=== PATIENT | male | born 1955 | race Hispanic/Latino ===

== ENCOUNTER → 2024-02-09 | Outpatient (CLI) | payer MEDICARE ==
[~2024-02-09] MED LIST: IOHEXOL 350 MG/ML 100ML INFUS..BTL IV ONE
== END | disposition home or self-care (01) ==
LOC: RAH 09:38
PROVIDERS: ATTEND Student in an Organized Health Care Education/Training Program
DX: I25.10 Atherosclerotic heart disease of native coronary artery without angina pectoris (principal); R07.9 Chest pain, unspecified; J90 Pleural effusion, not elsewhere classified; M47.815 Spondylosis without myelopathy or radiculopathy, thoracolumbar region
CPT/HCPCS: 75574; Q9967

== ENCOUNTER 2024-03-07 09:07 | Inpatient (IN) | payer MEDICARE ==
[2024-03-03 13:25] LABS: BASOPHILS # (AUTO) 0.03 K/uL (0.00-0.20); BASOPHILS % (AUTO) 0.4 % (0.0-5.0); EOSINOPHILS # (AUTO) 0.12 K/uL (0.00-0.70); EOSINOPHILS % (AUTO) 1.5 % (0.0-8.0); HEMATOCRIT 43.7 % (42-54); IMMATURE GRANULOCYTE ABSOLUTE 0.04 K/uL (0-1); LYMPHOCYTES # (AUTO) 2.2 K/uL (1.0-4.8); LYMPHOCYTES % (AUTO) 26.8 % (21.0-51.0); MEAN CORPUSCULAR HEMOGLOBIN 30.1 pg (27.0-33.0); MEAN CORPUSCULAR HGB CONC 33.6 g/dL (32.0-36.0); MEAN CORPUSCULAR VOLUME 89.4 fL (79-99); MONOCYTES # (AUTO) 0.6 K/uL (0.1-1.0); MONOCYTES % (AUTO) 7.7 % (3.0-13.0); NEUTROPHILS # (AUTO) 5.2 K/uL (1.8-7.7); NEUTROPHILS % (AUTO) 63.1 % (40.0-77.0); PLATELET COUNT (AUTO) 193 K/uL (130-400); RED BLOOD CELL COUNT(AUTO) 4.89 MIL/uL (4.50-6.20); RED CELL DISTRIBUTION WIDTH 12.5 % (11.0-15.5); WHITE BLOOD COUNT (AUTO) 8.3 K/uL (4.8-10.8)
[2024-03-03 13:36] LABS: INR 0.94 (0.85-1.15); PROTHROMBIN TIME 11.1 SEC (9.6-11.6)
[2024-03-03 13:37] LABS: PARTIAL THROMBOPLASTIN TIME 25.6 SEC (26.3-35.5)
[2024-03-03 13:41] LABS: POTASSIUM 4.7 mmol/L (3.5-5.1)
[2024-03-03 13:56] LABS: B-TYPE NATRIURETIC PEPTIDE 912 pg/mL (0-100)
[2024-03-03 14:00] LABS: ADD UA MICROSCOPIC YES; APPEARANCE,URINE CLEAR (CLEAR); BILIRUBIN,URINE NEGATIVE (NEGATIVE); COLOR,URINE LIGHT-YELLOW (YELLOW); GLUCOSE, URINE (UA) >=1000 mg/dL (NEGATIVE); KETONES,URINE NEGATIVE (NEGATIVE); LEUKOCYTE ESTERASE ,URINE 250 Leu/uL (NEGATIVE); NITRATE,URINE NEGATIVE (NEGATIVE); OCCULT BLOOD,URINE NEGATIVE (NEGATIVE); PH,URINE 5.5 (5.0-8.0); PROTEIN,URINE 20 mg/dL (NEGATIVE); UROBILINOGEN,URINE 0.2 mg/dL (0.2-1.0)
[2024-03-03 14:03] LABS: BACTERIA,URINE RARE /HPF (None Seen); MUCUS,URINE RARE LPF (None Seen); OTHER CASTS, URINE 2 /LPF (None Seen); SQUAMOUS EPITHELIAL CELL,UR FEW /HPF (0-2)
[2024-03-03 14:46] VITALS: BP 142/73; PULSE 71; RESP 18
[2024-03-07] VITALS (11 sets, daily range): BP systolic 101–115; BP diastolic 57–67; PULSE 53–74; RESP 14–20; O2SAT 94–100
[~2024-03-07] VITALS: Ht 162.6 cm; Wt 71.2 kg
[~2024-03-07 09:07] MED LIST changes: -IOHEXOL 350 MG/ML 100ML INFUS..BTL IV ONE; +METF-445 PO
[2024-03-07] MEDS: 0.9%NACL 1000ML 1,000 ML IV ONE (11:21)
[2024-03-07] MEDS ORDERED: HEPARIN 10,000 UNIT/10ML (1,000 UNIT/ML) VIAL ONE (13:10)
[2024-03-07] MEDS ORDERED: NITROGLYCERIN 50MG VIAL ONE (13:10)
[2024-03-07] MEDS ORDERED: IOHEXOL 350 MG/ML 100ML INFUS..BTL IV ONE (13:10)
[2024-03-07] MEDS ORDERED: VERAPAMIL HCL 2.5 MG/ML VIAL ONE (13:10)
[2024-03-07] MEDS ORDERED: LIDOCAINE HCL 400MG/20ML VIAL ONE (13:11)
[2024-03-07] MEDS ORDERED: MIDAZOLAM HCL 1 MG/ML 2ML VIAL ONE (13:23)
[2024-03-07] MEDS ORDERED: FENTANYL CITRATE PF 50 MCG/1 ML 2ML VIAL ONE (13:23)
[2024-03-07] MEDS ORDERED: DEXTROSE 50%-WATER 50 ML DISP.SYRIN IV PRN (14:00)
[2024-03-07] MEDS ORDERED: GLUCAGON 1MG KIT 1 MG ML IM PRN (14:00)
[2024-03-07] MEDS: CEPHALEXIN 500 MG CAPSULE PO ONE (15:07)
[2024-03-07 16:47] LABS: ABG BASE EXCESS -0.9 mmol/L (-2.0-3.0); ABG HCO3 23.2 mmol/L (21.0-28.0); ABG OXYGEN SATURATION 96.7 % (95.0-99.0); ABG PCO2 37 mmHg (35-48); ABG PH 7.416 (7.35-7.450); PO2, ARTERIAL BG 85.7 mmHg (83.0-108.0); VENT MODE, BG RA (ROOM AIR)
[2024-03-07] MEDS ORDERED: ACETAMINOPHEN 325 MG TAB PO PRN (17:00)
[2024-03-07] MEDS ORDERED: DOCUSATE SODIUM 100 MG CAP PO PRN (17:00)
[2024-03-07] MEDS ORDERED: HYDRALAZINE 20MG/ML VIAL IV PRN (17:00)
[2024-03-07] MEDS ORDERED: ACETAMINOPHEN 650 MG SUPPOSITORY RC PRN (17:00)
[2024-03-07] MEDS ORDERED: CLONIDINE HCL 0.1 MG TABLET PO PRN (17:00)
[2024-03-07] MEDS ORDERED: ONDANSETRON 4MG INJ IVP PRN (17:00)
[2024-03-07] MEDS ORDERED: LACTULOSE 20 GM/30 ML UDCUP PO PRN (17:00)
[2024-03-07] MEDS: 0.9%NACL 1000ML 1,000 ML IV SCH ×2 (17:30→17:33)
[2024-03-07] MEDS: INSULIN HUMULIN R 100 UNIT/ML 3ML SQ SCH (22:03)
[2024-03-08] VITALS (11 sets, daily range): BP systolic 115–134; BP diastolic 58–74; PULSE 61–127; RESP 16–20; O2SAT 95–100
[2024-03-08 05:17] LABS: BASOPHILS # (AUTO) 0.03 K/uL (0.00-0.20); BASOPHILS % (AUTO) 0.4 % (0.0-5.0); EOSINOPHILS # (AUTO) 0.13 K/uL (0.00-0.70); EOSINOPHILS % (AUTO) 1.5 % (0.0-8.0); HEMATOCRIT 40.8 % (42-54); IMMATURE GRANULOCYTE ABSOLUTE 0.04 K/uL (0-1); LYMPHOCYTES % (AUTO) 23.2 % (21.0-51.0); MEAN CORPUSCULAR HEMOGLOBIN 30.2 pg (27.0-33.0); MEAN CORPUSCULAR HGB CONC 33.3 g/dL (32.0-36.0); MEAN CORPUSCULAR VOLUME 90.7 fL (79-99); MONOCYTES # (AUTO) 0.6 K/uL (0.1-1.0); MONOCYTES % (AUTO) 7.1 % (3.0-13.0); NEUTROPHILS # (AUTO) 5.8 K/uL (1.8-7.7); NEUTROPHILS % (AUTO) 67.3 % (40.0-77.0); PLATELET COUNT (AUTO) 173 K/uL (130-400); RED CELL DISTRIBUTION WIDTH 12.3 % (11.0-15.5); WHITE BLOOD COUNT (AUTO) 8.6 K/uL (4.8-10.8)
[2024-03-08 05:39] LABS: CREATININE 0.8 mg/dL (0.5-1.3); MAGNESIUM 1.7 mg/dL (1.80-2.40); PHOSPHORUS 3.5 mg/dL (2.5-4.9); POTASSIUM 3.8 mmol/L (3.5-5.1)
[2024-03-08] MEDS: MAGNESIUM 2GM PREMIX 50ML 50 ML IV PRN (07:11)
[2024-03-08] MEDS: ATORVASTATIN 40 MG TABLET PO SCH (21:11)
[2024-03-09] VITALS (45 sets, daily range): BP systolic 54–215; BP diastolic 13–121; PULSE 49–157; RESP 11–164; TEMP 97.6; O2SAT 96–100
[2024-03-09 04:41] LABS: HEMATOCRIT 41.2 % (42-54); MEAN CORPUSCULAR HEMOGLOBIN 29.7 pg (27.0-33.0); MEAN CORPUSCULAR HGB CONC 34.2 g/dL (32.0-36.0); MEAN CORPUSCULAR VOLUME 86.7 fL (79-99); RED BLOOD CELL COUNT(AUTO) 4.75 MIL/uL (4.50-6.20); RED CELL DISTRIBUTION WIDTH 12.2 % (11.0-15.5); WHITE BLOOD COUNT (AUTO) 7.9 K/uL (4.8-10.8)
[2024-03-09 04:50] LABS: CREATININE 0.9 mg/dL (0.5-1.3); POTASSIUM 4.4 mmol/L (3.5-5.1)
[2024-03-09 04:53] LABS: BILIRUBIN,TOTAL 0.6 mg/dL (0.2-1.0); TOTAL PROTEIN, SERUM 6.5 g/dL (6.0-8.3)
[2024-03-09 04:54] LABS: INR 0.95 (0.85-1.15); PROTHROMBIN TIME 11.3 SEC (9.6-11.6)
[2024-03-09 04:55] LABS: PARTIAL THROMBOPLASTIN TIME 26.1 SEC (26.3-35.5)
[2024-03-09 05:19] LABS: HEMOGLOBIN A1C 10.7 % (4.0-6.0)
[2024-03-09] MEDS: METOPROLOL SUCCINATE 25 MG TAB.SR.24H PO SCH (08:35)
[2024-03-09] MEDS: ENOXAPARIN SODIUM 30 MG/0.3 ML SQ SCH (08:35)
[2024-03-09] MEDS: ASPIRIN 81MG CHEW TAB PO SCH (08:35)
[2024-03-09] MEDS ORDERED: NOREPINEPHRIN 8MG/250ML NS 250 ML IV PRN (09:30)
[2024-03-09] MEDS ORDERED: EPINEPHRINE PF 1MG (1:1,000) 10 MG in 0.9% NACL 250ML 240 ML IV PRN ×2 (09:30→16:00)
[2024-03-09] MEDS ORDERED: AMINOCAPROIC ACID 5,000MG VIAL 15,000 MG in 0.9% NACL 500ML IV.SOLN 420 ML IV PRN (09:30)
[2024-03-09] MEDS ORDERED: CEFAZOLIN SODIUM 1 GM VIAL ONE (10:25)
[2024-03-09] MEDS ORDERED: PAPAVERINE HCL 30 MG/ML 2ML VIAL ONE (10:26)
[2024-03-09] MEDS ORDERED: NITROGLYCERIN 50MG/D5W 250ML 1 BOT ONE (13:53)
[2024-03-09] MEDS: 0.9%NACL 1000ML 1,000 ML IV ONE (13:54)
[2024-03-09] MEDS ORDERED: HEPARIN 10,000 UNIT/10ML (1,000 UNIT/ML) VIAL ONE ×3 (14:29→19:14)
[2024-03-09] MEDS ORDERED: EPINEPHRINE PF 1MG (1:1,000) 1 MG/ML AMP ONE (14:29)
[2024-03-09] MEDS ORDERED: NOREPINEPHRINE BITARTRATE 1 MG/1 ML ML IV ONE (14:29)
[2024-03-09] MEDS ORDERED: PROTAMINE SULFATE 10 MG/ML 25ML VIAL IV ONE (14:29)
[2024-03-09] MEDS ORDERED: LIDOCAINE PF 100MG/5ML (2%) SYRINGE 5ML ONE (14:29)
[2024-03-09] MEDS ORDERED: FENTANYL CITRATE PF 50 MCG/1 ML 20ML VIAL IJ ONE (14:29)
[2024-03-09] MEDS ORDERED: SODIUM BICARB 50MEQ 50ML VIAL 150 ML ONE ×2 (14:29→17:22)
[2024-03-09] MEDS ORDERED: PROPOFOL 10 MG/ML 20ML VIAL IV ONE (14:29)
[2024-03-09] MEDS ORDERED: MIDAZOLAM HCL 1 MG/ML 2ML VIAL ONE (14:30)
[2024-03-09] MEDS ORDERED: ROCURONIUM BROMIDE 10MG/1ML 5ML VL ONE ×2 (14:30→17:36)
[2024-03-09] MEDS ORDERED: KETAMINE 50MG/ML SYRINGE 50 MG/ML DISP.SYRIN ONE (14:32)
[2024-03-09] MEDS: CEFAZOLIN SODIUM 2 GM VIAL IVPB ONE (14:50)
[2024-03-09 15:31] LABS: ABG BASE EXCESS -4.8 mmol/L (-2.0-3.0); ABG HCO3 20.6 mmol/L (21.0-28.0); ABG OXYGEN SATURATION 99.5 % (95.0-99.0); ABG PCO2 39 mmHg (35-48); ABG PH 7.336 (7.35-7.450); CARBON MONOXIDE 0.2; DEVICE COMMENT 1; HHb 0.5; PO2, ARTERIAL BG 344.8 mmHg (83.0-108.0)
[2024-03-09] MEDS ORDERED: PROPOFOL 1000 MG/100 ML 100 ML IV PRN (16:00)
[2024-03-09] MEDS ORDERED: INSULIN REGULAR, HUMAN 3ML 100 UNIT in 0.9%NACL 100ML 99 ML IV SCH (16:00)
[2024-03-09] MEDS ORDERED: ACETAMINOPHEN 650 MG SUPPOSITORY RC PRN (16:00)
[2024-03-09] MEDS ORDERED: TRAMADOL HCL 50 MG TABLET PO PRN ×2 (16:00)
[2024-03-09] MEDS ORDERED: 0.9%NACL 10ML VIAL IVP PRN (16:00)
[2024-03-09] MEDS ORDERED: GLUCAGON 1MG KIT 1 MG ML IM PRN (16:00)
[2024-03-09] MEDS ORDERED: MORPHINE 2 MG SYG IV PRN ×2 (16:00)
[2024-03-09] MEDS ORDERED: AMINOCAPROIC ACID 5,000MG VIAL 15,000 MG in 0.9% NACL 250ML 250 ML IV SCH (16:00)
[2024-03-09] MEDS ORDERED: NOREPINEPHRINE BITARTRATE 8 MG in DEXTROSE 5%-WATER 250 ML IV PRN (16:00)
[2024-03-09] MEDS ORDERED: PROTAMINE SULFATE 10 MG/ML 5 ML VIAL ONE (17:15)
[2024-03-09 17:18] LABS: ABG HCO3 16.7 mmol/L (21.0-28.0); ABG OXYGEN SATURATION 99.4 % (95.0-99.0); ABG PCO2 35 mmHg (35-48); ABG PH 7.291 (7.35-7.450); CARBON MONOXIDE 0.3; DEVICE COMMENT 2; HHb 0.6
[2024-03-09] MEDS ORDERED: EPHEDRINE SULFATE 50 MG/ML AMPULE ONE (17:34)
[2024-03-09 17:57] LABS: ABG BASE EXCESS -1.9 mmol/L (-2.0-3.0); ABG HCO3 22.8 mmol/L (21.0-28.0); ABG OXYGEN SATURATION 99.2 % (95.0-99.0); ABG PCO2 39 mmHg (35-48); ABG PH 7.387 (7.35-7.450); CARBON MONOXIDE 0.6; HHb 0.8; PO2, ARTERIAL BG 374.8 mmHg (83.0-108.0); VENT MODE, BG SIMV PS 10 (ROOM AIR)
[2024-03-09] MEDS: NITROGLYCERIN 50MG/D5W 250ML 250 BOT IV SCH (18:11)
[2024-03-09] MEDS: SODIUM BICARB 50MEQ 50ML VIAL IV PRN (18:11)
[2024-03-09 18:12] LABS: HEMATOCRIT 37.3 % (42-54); MEAN CORPUSCULAR HGB CONC 34.3 g/dL (32.0-36.0); MEAN CORPUSCULAR VOLUME 87.4 fL (79-99); RED BLOOD CELL COUNT(AUTO) 4.27 MIL/uL (4.50-6.20); RED CELL DISTRIBUTION WIDTH 12.2 % (11.0-15.5); WHITE BLOOD COUNT (AUTO) 20.9 K/uL (4.8-10.8)
[2024-03-09] MEDS: POTASSIUM CHLORIDE 20MEQ/100ML 100 ML IV PRN (18:12)
[2024-03-09] MEDS: ASPIRIN 81MG CHEW TAB NG ONE (18:14)
[2024-03-09 18:24] LABS: INR 1.06 (0.85-1.15); PROTHROMBIN TIME 12.4 SEC (9.6-11.6)
[2024-03-09 18:26] LABS: PARTIAL THROMBOPLASTIN TIME 23.9 SEC (26.3-35.5)
[2024-03-09 18:33] LABS: MAGNESIUM 1.6 mg/dL (1.80-2.40); PHOSPHORUS 4.3 mg/dL (2.5-4.9)
[2024-03-09 18:40] LABS: POTASSIUM 2.5 mmol/L (3.5-5.1)
[2024-03-09 18:41] LABS: ABG BASE EXCESS -0.8 mmol/L (-2.0-3.0); ABG HCO3 23.5 mmol/L (21.0-28.0); ABG OXYGEN SATURATION 97.9 % (95.0-99.0); ABG PCO2 38 mmHg (35-48); CARBON MONOXIDE 0.3; HHb 2.1; PO2, ARTERIAL BG 140.8 mmHg (83.0-108.0); VENT MODE, BG 100AMBUBAG (ROOM AIR)
[2024-03-09] MEDS: 0.9%NACL 1000ML 1,000 ML IV SCH (19:13)
[2024-03-09] MEDS ORDERED: IOHEXOL-350 50ML VIAL IV ONE (19:14)
[2024-03-09] MEDS ORDERED: IOHEXOL 350 MG/ML 100ML INFUS..BTL IV ONE (19:14)
[2024-03-09] MEDS ORDERED: NITROGLYCERIN 50MG VIAL ONE (19:14)
[2024-03-09] MEDS ORDERED: LIDOCAINE HCL 400MG/20ML VIAL ONE (19:14)
[2024-03-09] MEDS: MORPHINE 2 MG SYG IVP ONE (19:16)
[2024-03-09] MEDS: MIDAZOLAM HCL 1 MG/ML 2ML VIAL IVP ONE (19:16)
[2024-03-09] MEDS: MIDAZOLAM HCL 1 MG/ML 2ML VIAL ONE (19:17)
[2024-03-09] MEDS ORDERED: ATROPINE 1MG SYG IVP ONE (19:17)
[2024-03-09] MEDS: LIDOCAINE 2G/250ML 250 ML IV ONE (19:18)
[2024-03-09 19:24] LABS: ABG BASE EXCESS -5.8 mmol/L (-2.0-3.0); ABG HCO3 19.9 mmol/L (21.0-28.0); ABG OXYGEN SATURATION 98.8 % (95.0-99.0); ABG PCO2 40 mmHg (35-48); ABG PH 7.316 (7.35-7.450); CARBON MONOXIDE 0.3; HHb 1.2; PO2, ARTERIAL BG 350.5 mmHg (83.0-108.0); VENT MODE, BG SIMV PS 10 (ROOM AIR)
[2024-03-09] MEDS ORDERED: HEPARIN 25,000 UNITS/250ML D5W 250 ML IV ONE (20:28)
[2024-03-09] MEDS ORDERED: CLOPIDOGREL 300MG TAB ONE (20:40)
[2024-03-09] MEDS ORDERED: ASPIRIN 325MG EC TAB PO ONE (20:40)
[2024-03-09] MEDS ORDERED: NITROGLYCERIN 50MG/D5W 250ML 1 BOT IV PRN (21:00)
[2024-03-09] MEDS ORDERED: ACETAMINOPHEN WITH CODEINE 1 TAB TAB PO PRN ×2 (21:00)
[2024-03-09 21:32] LABS: ABG HCO3 18.7 mmol/L (21.0-28.0); ABG PCO2 35 mmHg (35-48); CARBON MONOXIDE 0.2; VENT MODE, BG SIMV PS 10 (ROOM AIR)
[2024-03-09 21:44] LABS: BASOPHILS # (AUTO) 0.05 K/uL (0.00-0.20); BASOPHILS % (AUTO) 0.2 % (0.0-5.0); EOSINOPHILS # (AUTO) 0.02 K/uL (0.00-0.70); EOSINOPHILS % (AUTO) 0.1 % (0.0-8.0); HEMATOCRIT 40.7 % (42-54); IMMATURE GRANULOCYTE ABSOLUTE 0.24 K/uL (0-1); LYMPHOCYTES % (AUTO) 6.9 % (21.0-51.0); MEAN CORPUSCULAR HEMOGLOBIN 30.3 pg (27.0-33.0); MEAN CORPUSCULAR HGB CONC 33.9 g/dL (32.0-36.0); MEAN CORPUSCULAR VOLUME 89.3 fL (79-99); MONOCYTES # (AUTO) 2.4 K/uL (0.1-1.0); MONOCYTES % (AUTO) 8.1 % (3.0-13.0); NEUTROPHILS # (AUTO) 24.6 K/uL (1.8-7.7); NEUTROPHILS % (AUTO) 83.9 % (40.0-77.0); PLATELET COUNT (AUTO) 175 K/uL (130-400); RED BLOOD CELL COUNT(AUTO) 4.56 MIL/uL (4.50-6.20); RED CELL DISTRIBUTION WIDTH 12.2 % (11.0-15.5); WHITE BLOOD COUNT (AUTO) 29.3 K/uL (4.8-10.8)
[2024-03-09] MEDS ORDERED: HEPARIN 5,000 UNIT VIAL IV PRN (22:00)
[2024-03-09] MEDS ORDERED: AMIODARONE 900MG VIAL 360 MG in DEXTROSE 5%-WATER 200 ML IV SCH (22:00)
[2024-03-09 22:38] LABS: ABG BASE EXCESS -0.8 mmol/L (-2.0-3.0); ABG HCO3 23.7 mmol/L (21.0-28.0); ABG OXYGEN SATURATION 98.6 % (95.0-99.0); ABG PCO2 39 mmHg (35-48); ABG PH 7.403 (7.35-7.450); CARBON MONOXIDE 0.3; HHb 1.4; PO2, ARTERIAL BG 237.4 mmHg (83.0-108.0); VENT MODE, BG SIMV PS 10 (ROOM AIR)
[2024-03-09] MEDS: CEFAZOLIN SODIUM 2 GM VIAL ONE (22:38)
[2024-03-09] MEDS: FUROSEMIDE 100MG VIAL 100 MG in 0.9%NACL 100ML 90 ML IV PRN (22:40)
[2024-03-09] MEDS: AMIODARONE 900MG VIAL 540 MG in DEXTROSE 5%-WATER 300 ML IV SCH (22:42)
[2024-03-09] MEDS: FAMOTIDINE 20MG VIAL IV SCH (22:45)
[2024-03-09] MEDS: DOCUSATE SODIUM 100 MG CAP PO ONE (22:45)
[2024-03-09] MEDS: CEFAZOLIN SODIUM 2 GM VIAL IVPB SCH ×2 (22:45→22:46)
[2024-03-09] MEDS: NOREPINEPHRIN 8MG/250ML NS 250 ML IV ONE (23:15)
[2024-03-09] MEDS: HEPARIN 25,000 UNITS/250ML D5W 250 ML IV SCH (23:16)
[2024-03-09 23:36] LABS: ABG BASE EXCESS -4.6 mmol/L (-2.0-3.0); ABG HCO3 19.7 mmol/L (21.0-28.0); ABG OXYGEN SATURATION 98.6 % (95.0-99.0); ABG PCO2 34 mmHg (35-48); ABG PH 7.384 (7.35-7.450); CARBON MONOXIDE 0.3; HHb 1.4; PO2, ARTERIAL BG 201.4 mmHg (83.0-108.0); VENT MODE, BG SIMV PS 10 (ROOM AIR)
[2024-03-10] VITALS (117 sets, daily range): BP systolic 79–155; BP diastolic 28–100; PULSE 82–108; RESP 4–46; TEMP 97.9–101.2; O2SAT 95–100
[2024-03-10 00:34] LABS: ABG BASE EXCESS 2.1 mmol/L (-2.0-3.0); ABG HCO3 25.9 mmol/L (21.0-28.0); ABG OXYGEN SATURATION 98.1 % (95.0-99.0); ABG PCO2 38 mmHg (35-48); ABG PH 7.457 (7.35-7.450); CARBON MONOXIDE 0.2; HHb 1.9; PO2, ARTERIAL BG 169.8 mmHg (83.0-108.0); VENT MODE, BG SIMV PS 10 (ROOM AIR)
[2024-03-10 01:41] LABS: ABG BASE EXCESS 0.1 mmol/L (-2.0-3.0); ABG HCO3 23.9 mmol/L (21.0-28.0); ABG OXYGEN SATURATION 97.2 % (95.0-99.0); ABG PCO2 36 mmHg (35-48); ABG PH 7.443 (7.35-7.450); CARBON MONOXIDE 0; HHb 2.8; PO2, ARTERIAL BG 111.4 mmHg (83.0-108.0); VENT MODE, BG SIMV PS 10 (ROOM AIR)
[2024-03-10] MEDS: CALCIUM GLUC 1GM 1 GM in 0.9%NACL 50ML 50 ML IV PRN (01:47)
[2024-03-10 02:32] LABS: ABG BASE EXCESS 0.5 mmol/L (-2.0-3.0); ABG HCO3 24.4 mmol/L (21.0-28.0); ABG OXYGEN SATURATION 96.8 % (95.0-99.0); ABG PCO2 36 mmHg (35-48); ABG PH 7.444 (7.35-7.450); CARBON MONOXIDE 0.3; HHb 3.2; VENT MODE, BG SIMV PS 10 (ROOM AIR)
[2024-03-10 03:32] LABS: ABG HCO3 24.8 mmol/L (21.0-28.0); ABG OXYGEN SATURATION 96.6 % (95.0-99.0); ABG PCO2 36 mmHg (35-48); ABG PH 7.456 (7.35-7.450); CARBON MONOXIDE 0.3; HHb 3.4; PO2, ARTERIAL BG 102.7 mmHg (83.0-108.0); VENT MODE, BG SIMV PS 10 (ROOM AIR)
[2024-03-10 04:05] LABS: HEMATOCRIT 26.1 % (42-54); MEAN CORPUSCULAR HEMOGLOBIN 29.8 pg (27.0-33.0); MEAN CORPUSCULAR HGB CONC 34.1 g/dL (32.0-36.0); MEAN CORPUSCULAR VOLUME 87.3 fL (79-99); RED BLOOD CELL COUNT(AUTO) 2.99 MIL/uL (4.50-6.20); RED CELL DISTRIBUTION WIDTH 12.4 % (11.0-15.5); WHITE BLOOD COUNT (AUTO) 19.9 K/uL (4.8-10.8)
[2024-03-10 04:18] LABS: INR 1.39 (0.85-1.15)
[2024-03-10 04:26] LABS: CREATININE 1.4 mg/dL (0.5-1.3); MAGNESIUM 1.8 mg/dL (1.80-2.40); POTASSIUM 3.9 mmol/L (3.5-5.1)
[2024-03-10 04:32] LABS: PHOSPHORUS 0.7 mg/dL (2.5-4.9)
[2024-03-10 04:37] LABS: ABG BASE EXCESS 2.9 mmol/L (-2.0-3.0); ABG HCO3 26.7 mmol/L (21.0-28.0); ABG OXYGEN SATURATION 97.1 % (95.0-99.0); ABG PCO2 38 mmHg (35-48); ABG PH 7.464 (7.35-7.450); CARBON MONOXIDE 0.3; HHb 2.9; PO2, ARTERIAL BG 110.1 mmHg (83.0-108.0); VENT MODE, BG SIMV PS10 (ROOM AIR)
[2024-03-10 04:40] LABS: PARTIAL THROMBOPLASTIN TIME > 139.0 SEC (26.3-35.5)
[2024-03-10] MEDS: MAGNESIUM 2GM PREMIX 50ML 50 ML IV PRN (05:01)
[2024-03-10 05:36] LABS: ABG BASE EXCESS 1.2 mmol/L (-2.0-3.0); ABG HCO3 24.7 mmol/L (21.0-28.0); ABG OXYGEN SATURATION 98.1 % (95.0-99.0); ABG PCO2 35 mmHg (35-48); ABG PH 7.469 (7.35-7.450); CARBON MONOXIDE 0.3; HHb 1.9; PO2, ARTERIAL BG 149.8 mmHg (83.0-108.0); VENT MODE, BG SIMV PS 10 (ROOM AIR)
[2024-03-10] MEDS: ONDANSETRON 4MG INJ IV PRN (06:17)
[2024-03-10] MEDS: POTASSIUM PHOS 15 mMOL+NS250ML 250 ML IV PRN (06:43)
[2024-03-10 07:09] LABS: ABG BASE EXCESS -0.3 mmol/L (-2.0-3.0); ABG HCO3 23.4 mmol/L (21.0-28.0); ABG OXYGEN SATURATION 97.8 % (95.0-99.0); ABG PCO2 35 mmHg (35-48); ABG PH 7.448 (7.35-7.450); CARBON MONOXIDE 0.3; HHb 2.2; PO2, ARTERIAL BG 140.4 mmHg (83.0-108.0); VENT MODE, BG SIMV-VC PS10 (ROOM AIR)
[2024-03-10] MEDS: NOREPINEPHRIN 8MG/250ML NS 250 ML IV ONE (07:33)
[2024-03-10] MEDS: VASOPRESSIN 40 UNITS in 0.9%NACL 50ML 40 ML IV SCH (07:35)
[2024-03-10] MEDS: AMIODARONE 540 MG in DEXTROSE 5%-WATER 300 ML IV NR (07:44)
[2024-03-10 08:18] LABS: ABG BASE EXCESS -1.6 mmol/L (-2.0-3.0); ABG HCO3 22.1 mmol/L (21.0-28.0); ABG OXYGEN SATURATION 97.9 % (95.0-99.0); ABG PCO2 34 mmHg (35-48); ABG PH 7.433 (7.35-7.450); CARBON MONOXIDE 0.3; HHb 2.1; PO2, ARTERIAL BG 149.3 mmHg (83.0-108.0); VENT MODE, BG SIMV-VC PS10 (ROOM AIR)
[2024-03-10] MEDS: PANTOPRAZOLE 40 MG TAB DR PO SCH (09:00)
[2024-03-10] MEDS ORDERED: FUROSEMIDE 20MG VIAL IV SCH (09:00)
[2024-03-10 09:24] LABS: ABG BASE EXCESS 1.6 mmol/L (-2.0-3.0); ABG HCO3 25.5 mmol/L (21.0-28.0); ABG OXYGEN SATURATION 97.9 % (95.0-99.0); ABG PCO2 38 mmHg (35-48); ABG PH 7.449 (7.35-7.450); CARBON MONOXIDE 0.3; HHb 2.1; PO2, ARTERIAL BG 139.4 mmHg (83.0-108.0); VENT MODE, BG SIMV-VC PS10 (ROOM AIR)
[2024-03-10] MEDS: CLOPIDOGREL 75MG TAB PO SCH (09:39)
[2024-03-10] MEDS: ASPIRIN 81MG CHEW TAB PO SCH (09:39)
[2024-03-10] MEDS: EPINEPHRINE PF 1MG (1:1,000) 10 MG in 0.9% NACL 250ML 250 ML IV SCH (09:43)
[2024-03-10 10:20] LABS: ABG BASE EXCESS 1.2 mmol/L (-2.0-3.0); ABG HCO3 24.8 mmol/L (21.0-28.0); ABG OXYGEN SATURATION 98.2 % (95.0-99.0); ABG PCO2 36 mmHg (35-48); CARBON MONOXIDE 0.2; HHb 1.8; PO2, ARTERIAL BG 151.2 mmHg (83.0-108.0); VENT MODE, BG SIMV-VC PS10 (ROOM AIR)
[2024-03-10 10:53] LABS: HEMATOCRIT 32.2 % (42-54); MEAN CORPUSCULAR HEMOGLOBIN 30.2 pg (27.0-33.0); MEAN CORPUSCULAR HGB CONC 34.5 g/dL (32.0-36.0); MEAN CORPUSCULAR VOLUME 87.5 fL (79-99); RED BLOOD CELL COUNT(AUTO) 3.68 MIL/uL (4.50-6.20); RED CELL DISTRIBUTION WIDTH 12.8 % (11.0-15.5); WHITE BLOOD COUNT (AUTO) 19.8 K/uL (4.8-10.8)
[2024-03-10 11:18] LABS: ABG BASE EXCESS 0.2 mmol/L (-2.0-3.0); ABG HCO3 23.7 mmol/L (21.0-28.0); ABG OXYGEN SATURATION 98.1 % (95.0-99.0); ABG PCO2 35 mmHg (35-48); ABG PH 7.455 (7.35-7.450); CARBON MONOXIDE 0.2; HHb 1.9; PO2, ARTERIAL BG 148.5 mmHg (83.0-108.0); VENT MODE, BG SIMV-VC PS10 (ROOM AIR)
[2024-03-10 12:16] LABS: ABG BASE EXCESS 2.7 mmol/L (-2.0-3.0); ABG HCO3 26.4 mmol/L (21.0-28.0); ABG OXYGEN SATURATION 98.1 % (95.0-99.0); ABG PCO2 37 mmHg (35-48); ABG PH 7.469 (7.35-7.450); CARBON MONOXIDE 0.2; HHb 1.9; PO2, ARTERIAL BG 144.3 mmHg (83.0-108.0); VENT MODE, BG SIMV-VC PS10 (ROOM AIR)
[2024-03-10 13:14] LABS: INR 1.31 (0.85-1.15); PROTHROMBIN TIME 15.1 SEC (9.6-11.6)
[2024-03-10 13:16] LABS: PARTIAL THROMBOPLASTIN TIME 33.2 SEC (26.3-35.5)
[2024-03-10] MEDS: ALBUMIN (HUMAN) 5% 250 ML IV PRN (13:40)
[2024-03-10] MEDS: NOREPINEPHRIN 8MG/250ML NS 250 ML IV SCH (13:41)
[2024-03-10 14:03] LABS: ABG BASE EXCESS 2.2 mmol/L (-2.0-3.0); ABG HCO3 26.1 mmol/L (21.0-28.0); ABG OXYGEN SATURATION 97.7 % (95.0-99.0); ABG PCO2 38 mmHg (35-48); ABG PH 7.456 (7.35-7.450); CARBON MONOXIDE 0.3; HHb 2.3; PO2, ARTERIAL BG 140.8 mmHg (83.0-108.0); VENT MODE, BG SIMV-VC PS10 (ROOM AIR)
[2024-03-10 15:02] LABS: HEMATOCRIT 27.3 % (42-54); MEAN CORPUSCULAR HEMOGLOBIN 30.4 pg (27.0-33.0); MEAN CORPUSCULAR HGB CONC 35.5 g/dL (32.0-36.0); MEAN CORPUSCULAR VOLUME 85.6 fL (79-99); PLATELET COUNT (AUTO) 30 K/uL (130-400); RED BLOOD CELL COUNT(AUTO) 3.19 MIL/uL (4.50-6.20); RED CELL DISTRIBUTION WIDTH 13.2 % (11.0-15.5); WHITE BLOOD COUNT (AUTO) 20.5 K/uL (4.8-10.8)
[2024-03-10 15:19] LABS: ABG BASE EXCESS 2.6 mmol/L (-2.0-3.0); ABG HCO3 26.4 mmol/L (21.0-28.0); ABG OXYGEN SATURATION 97.6 % (95.0-99.0); ABG PCO2 38 mmHg (35-48); ABG PH 7.464 (7.35-7.450); CARBON MONOXIDE 0.3; HHb 2.4; PO2, ARTERIAL BG 122.1 mmHg (83.0-108.0); VENT MODE, BG SIMV-VC PS10 (ROOM AIR)
[2024-03-10 16:16] LABS: PLATELET MORPHOLOGY COMMENT MARKED DECREASE
[2024-03-10 16:36] LABS: ABG BASE EXCESS 2.8 mmol/L (-2.0-3.0); ABG HCO3 26.9 mmol/L (21.0-28.0); ABG OXYGEN SATURATION 96.5 % (95.0-99.0); ABG PCO2 39 mmHg (35-48); ABG PH 7.453 (7.35-7.450); CARBON MONOXIDE 0.1; HHb 3.5; PO2, ARTERIAL BG 98.8 mmHg (83.0-108.0); VENT MODE, BG CAFM (ROOM AIR)
[2024-03-10] MEDS: ACETAMINOPHEN 325 MG TAB PO PRN (16:43)
[2024-03-10] MEDS: ACETAMINOPHEN 1,000 MG/100 ML VIAL IV SCH (23:18)
[2024-03-11] VITALS (111 sets, daily range): BP systolic -1–148; BP diastolic -1–98; PULSE 66–90; RESP 5–167; TEMP 98.8–99.2; O2SAT 95–98
[2024-03-11 03:54] LABS: HEMATOCRIT 29.6 % (42-54); MEAN CORPUSCULAR HEMOGLOBIN 30.1 pg (27.0-33.0); MEAN CORPUSCULAR HGB CONC 35.5 g/dL (32.0-36.0); MEAN CORPUSCULAR VOLUME 84.8 fL (79-99); RED BLOOD CELL COUNT(AUTO) 3.49 MIL/uL (4.50-6.20); RED CELL DISTRIBUTION WIDTH 13.7 % (11.0-15.5); WHITE BLOOD COUNT (AUTO) 23.2 K/uL (4.8-10.8)
[2024-03-11 04:07] LABS: INR 1.44 (0.85-1.15); PROTHROMBIN TIME 16.5 SEC (9.6-11.6)
[2024-03-11 04:08] LABS: PARTIAL THROMBOPLASTIN TIME 34.9 SEC (26.3-35.5)
[2024-03-11 04:22] LABS: CREATININE 1.6 mg/dL (0.5-1.3); MAGNESIUM 1.9 mg/dL (1.80-2.40); PHOSPHORUS 5.9 mg/dL (2.5-4.9); POTASSIUM 4.8 mmol/L (3.5-5.1)
[2024-03-11 04:52] LABS: ABG BASE EXCESS 4.1 mmol/L (-2.0-3.0); ABG HCO3 27.6 mmol/L (21.0-28.0); ABG OXYGEN SATURATION 96.1 % (95.0-99.0); ABG PCO2 37 mmHg (35-48); ABG PH 7.488 (7.35-7.450); CARBON MONOXIDE 0.4; HHb 3.9; PO2, ARTERIAL BG 88.6 mmHg (83.0-108.0); VENT MODE, BG NC (ROOM AIR)
[2024-03-11] MEDS ORDERED: DEXTROSE 50%-WATER 50 ML DISP.SYRIN IV PRN (07:00)
[2024-03-11] MEDS ORDERED: GLUCAGON 1MG KIT 1 MG ML IM PRN (07:00)
[2024-03-11] MEDS: INSULIN HUMULIN R 100 UNIT/ML 3ML SQ SCH (07:30)
[2024-03-11] MEDS: METOPROLOL TARTRATE 25 MG TAB PO SCH (08:17)
[2024-03-11] MEDS ORDERED: FUROSEMIDE 20 MG TABLET PO SCH (09:00)
[2024-03-11 09:43] LABS: ALBUMIN 2.8 g/dL (3.5-5.0); BILIRUBIN,DIRECT 0.5 mg/dL (0.0-0.3); TOTAL PROTEIN, SERUM 4.6 g/dL (6.0-8.3)
[2024-03-11 10:35] LABS: MAGNESIUM 2.3 mg/dL (1.80-2.40); POTASSIUM 4.8 mmol/L (3.5-5.1)
[2024-03-11] MEDS: ALBUMIN (HUMAN) 5% 250 ML IV ONE (13:52)
[2024-03-11 15:01] LABS: ALBUMIN 2.6 g/dL (3.5-5.0); BILIRUBIN,DIRECT 1.1 mg/dL (0.0-0.3); BILIRUBIN,TOTAL 2.6 mg/dL (0.2-1.0); MAGNESIUM 2.1 mg/dL (1.80-2.40); PHOSPHORUS 5.9 mg/dL (2.5-4.9); POTASSIUM 4.3 mmol/L (3.5-5.1); TOTAL PROTEIN, SERUM 4.5 g/dL (6.0-8.3)
[2024-03-11] MEDS ORDERED: VANCOMYCIN PROTOCOL PER PHARMACY IV SCH (16:00)
[2024-03-11] MEDS ORDERED: DEXMEDETOMIDINE 400MCG/NS100ML IV SCH (16:00)
[2024-03-11] MEDS: CEFEPIME HCL 2 GM VIAL IVPB SCH (16:29)
[2024-03-11] MEDS: VANCOMYCIN 1.25 GM/250 ML BAG 250 ML IV SCH (16:49)
[2024-03-11] MEDS: FAMOTIDINE 20MG TAB PO SCH (19:46)
[2024-03-12] VITALS (73 sets, daily range): BP systolic 0–157; BP diastolic 0–85; PULSE 64–80; RESP 10–68; O2SAT 96–100
[2024-03-12 04:32] LABS: MEAN CORPUSCULAR HEMOGLOBIN 31.1 pg (27.0-33.0); MEAN CORPUSCULAR HGB CONC 34.3 g/dL (32.0-36.0); MEAN CORPUSCULAR VOLUME 90.6 fL (79-99); NUCLEATED RED BLOOD CELLS 0.2 % (0.0-0.19); RED BLOOD CELL COUNT(AUTO) 2.54 MIL/uL (4.50-6.20); RED CELL DISTRIBUTION WIDTH 14.4 % (11.0-15.5); WHITE BLOOD COUNT (AUTO) 17.6 K/uL (4.8-10.8)
[2024-03-12 04:50] LABS: ALBUMIN 2.5 g/dL (3.5-5.0); BILIRUBIN,DIRECT 0.6 mg/dL (0.0-0.3); BILIRUBIN,TOTAL 1.6 mg/dL (0.2-1.0); CREATININE 1.7 mg/dL (0.5-1.3); POTASSIUM 3.4 mmol/L (3.5-5.1); TOTAL PROTEIN, SERUM 4.7 g/dL (6.0-8.3)
[2024-03-12 08:10] LABS: ABG BASE EXCESS 2.3 mmol/L (-2.0-3.0); ABG HCO3 26.1 mmol/L (21.0-28.0); ABG OXYGEN SATURATION 98.1 % (95.0-99.0); ABG PCO2 37 mmHg (35-48); ABG PH 7.467 (7.35-7.450); CARBON MONOXIDE 0.5; HHb 1.9; VENT MODE, BG NC (ROOM AIR)
[2024-03-12] MEDS ORDERED: ENOXAPARIN SODIUM 30 MG/0.3 ML SQ SCH (09:00)
[2024-03-12] MEDS: ZOSYN 3.375GM +NS 50ML IVPB SCH (09:33)
[2024-03-12] MEDS: 0.9% NACL 500ML IV.SOLN 500 ML IV SCH (13:41)
[2024-03-12 16:54] LABS: MAGNESIUM 2.4 mg/dL (1.80-2.40); POTASSIUM 3.5 mmol/L (3.5-5.1)
[2024-03-12] MEDS: FUROSEMIDE 20 MG TABLET PO SCH (20:34)
[2024-03-13] VITALS (88 sets, daily range): BP systolic 62–175; BP diastolic 34–130; PULSE 63–76; RESP 14–56; TEMP 98.7; O2SAT 93–100
[2024-03-13 04:42] LABS: MEAN CORPUSCULAR HEMOGLOBIN 30.3 pg (27.0-33.0); MEAN CORPUSCULAR HGB CONC 33.6 g/dL (32.0-36.0); MEAN CORPUSCULAR VOLUME 90.3 fL (79-99); NUCLEATED RED BLOOD CELLS 0.5 % (0.0-0.19); RED BLOOD CELL COUNT(AUTO) 2.77 MIL/uL (4.50-6.20)
[2024-03-13 05:07] LABS: INR 1.2 (0.85-1.15)
[2024-03-13 05:09] LABS: ALBUMIN 2.5 g/dL (3.5-5.0); BILIRUBIN,DIRECT 0.6 mg/dL (0.0-0.3); BILIRUBIN,TOTAL 1.6 mg/dL (0.2-1.0); CREATININE 1.5 mg/dL (0.5-1.3); MAGNESIUM 1.9 mg/dL (1.80-2.40); PHOSPHORUS 2.6 mg/dL (2.5-4.9); POTASSIUM 3.6 mmol/L (3.5-5.1); TOTAL PROTEIN, SERUM 4.8 g/dL (6.0-8.3)
[2024-03-13] MEDS: DEXTROSE 50%-WATER 50 ML DISP.SYRIN IV PRN (07:31)
[2024-03-13] MEDS ORDERED: AMIODARONE 900MG VIAL 540 MG in DEXTROSE 5%-WATER 300 ML IV SCH (08:30)
[2024-03-13 09:54] LABS: HEMATOCRIT 24.8 % (42-54)
[2024-03-13 09:59] LABS: MAGNESIUM 2.4 mg/dL (1.80-2.40); POTASSIUM 3.6 mmol/L (3.5-5.1)
[2024-03-13 10:00] LABS: ABG BASE EXCESS 3.4 mmol/L (-2.0-3.0); ABG HCO3 26.9 mmol/L (21.0-28.0); ABG OXYGEN SATURATION 91.7 % (95.0-99.0); ABG PCO2 36 mmHg (35-48); CARBON MONOXIDE 0.1; HHb 8.2; VENT MODE, BG RA (ROOM AIR)
[2024-03-13] MEDS: METRONIDAZOLE 500MG/100ML BAG 100 ML IVPB SCH (10:52)
[2024-03-13] MEDS ORDERED: METRONIDAZOLE 500MG/100ML BAG IV SCH (11:00)
[2024-03-13] MEDS: IPRATROPIUM 0.5 MG/2.5 ML INH IH SCH (11:34)
[2024-03-13] MEDS: DOCUSATE SODIUM 100 MG CAP PO ONE (16:06)
[2024-03-13] MEDS: AMIODARONE 200 MG TABLET PO ONE (16:07)
[2024-03-13] MEDS: PRAMIPEXOLE DI-HCL 0.25 MG TABLET ONE (16:07)
[2024-03-13 16:38] LABS: MEAN CORPUSCULAR HEMOGLOBIN 30.3 pg (27.0-33.0); MEAN CORPUSCULAR HGB CONC 33.8 g/dL (32.0-36.0); MEAN CORPUSCULAR VOLUME 89.9 fL (79-99); NUCLEATED RED BLOOD CELLS 0.7 % (0.0-0.19); RED BLOOD CELL COUNT(AUTO) 2.67 MIL/uL (4.50-6.20); RED CELL DISTRIBUTION WIDTH 14.1 % (11.0-15.5); WHITE BLOOD COUNT (AUTO) 20.1 K/uL (4.8-10.8)
[2024-03-13 17:16] LABS: POTASSIUM 3.6 mmol/L (3.5-5.1)
[2024-03-13 17:17] LABS: MAGNESIUM 2.3 mg/dL (1.80-2.40)
[2024-03-13] MEDS ORDERED: ACETAMINOPHEN 1,000 MG/100 ML VIAL IV PRN (18:20)
[2024-03-13] MEDS ORDERED: COMPOUND IV REFRIGERATED 1 EACH IVSOLN MISC PRN (18:30)
[2024-03-13] MEDS: AMIODARONE 200 MG TABLET PO SCH (20:07)
[2024-03-13] MEDS: ATORVASTATIN 40 MG TABLET PO SCH (20:08)
[2024-03-14] VITALS (97 sets, daily range): BP systolic 98–167; BP diastolic 30–66; PULSE 68–86; RESP 17–44; TEMP 97.9–98.9; O2SAT 95–100
[2024-03-14 04:10] LABS: HEMATOCRIT 26.2 % (42-54); MEAN CORPUSCULAR HEMOGLOBIN 30.7 pg (27.0-33.0); MEAN CORPUSCULAR HGB CONC 33.2 g/dL (32.0-36.0); MEAN CORPUSCULAR VOLUME 92.6 fL (79-99); NUCLEATED RED BLOOD CELLS 1.1 % (0.0-0.19); RED BLOOD CELL COUNT(AUTO) 2.83 MIL/uL (4.50-6.20); WHITE BLOOD COUNT (AUTO) 18.4 K/uL (4.8-10.8)
[2024-03-14 04:17] LABS: INR 1.15 (0.85-1.15); PROTHROMBIN TIME 13.4 SEC (9.6-11.6)
[2024-03-14 04:23] LABS: ALBUMIN 2.4 g/dL (3.5-5.0); BILIRUBIN,DIRECT 0.7 mg/dL (0.0-0.3); BILIRUBIN,TOTAL 1.8 mg/dL (0.2-1.0); CREATININE 1.2 mg/dL (0.5-1.3); POTASSIUM 3.3 mmol/L (3.5-5.1); TOTAL PROTEIN, SERUM 5.1 g/dL (6.0-8.3)
[2024-03-14] MEDS: FAMOTIDINE 20MG TAB PO SCH (09:51)
[2024-03-15] VITALS (90 sets, daily range): BP systolic 86–158; BP diastolic 38–70; PULSE 68–88; RESP 18–44; TEMP 97.3–98.7; O2SAT 92–100
[2024-03-15 05:07] LABS: RED BLOOD CELL COUNT(AUTO) 2.95 MIL/uL (4.50-6.20); WHITE BLOOD COUNT (AUTO) 16.2 K/uL (4.8-10.8)
[2024-03-15 05:08] LABS: BASOPHILS # (AUTO) 0.05 K/uL (0.00-0.20); BASOPHILS % (AUTO) 0.3 % (0.0-5.0); EOSINOPHILS # (AUTO) 0.08 K/uL (0.00-0.70); EOSINOPHILS % (AUTO) 0.5 % (0.0-8.0); HEMATOCRIT 26.4 % (42-54); IMMATURE GRANULOCYTE ABSOLUTE 0.54 K/uL (0-1); LYMPHOCYTES # (AUTO) 1.7 K/uL (1.0-4.8); LYMPHOCYTES % (AUTO) 10.5 % (21.0-51.0); MEAN CORPUSCULAR HEMOGLOBIN 30.8 pg (27.0-33.0); MEAN CORPUSCULAR HGB CONC 34.5 g/dL (32.0-36.0); MEAN CORPUSCULAR VOLUME 89.5 fL (79-99); MONOCYTES # (AUTO) 1.5 K/uL (0.1-1.0); MONOCYTES % (AUTO) 9.1 % (3.0-13.0); NEUTROPHILS # (AUTO) 12.4 K/uL (1.8-7.7); NEUTROPHILS % (AUTO) 76.3 % (40.0-77.0); NUCLEATED RED BLOOD CELLS 0.9 % (0.0-0.19); PLATELET COUNT (AUTO) 109 K/uL (130-400); RED CELL DISTRIBUTION WIDTH 13.7 % (11.0-15.5)
[2024-03-15 05:22] LABS: CREATININE 0.9 mg/dL (0.5-1.3)
[2024-03-15 09:45] LABS: ABG BASE EXCESS 0.2 mmol/L (-2.0-3.0); ABG HCO3 23.6 mmol/L (21.0-28.0); ABG OXYGEN SATURATION 92.5 % (95.0-99.0); ABG PCO2 34 mmHg (35-48); ABG PH 7.465 (7.35-7.450); CARBON MONOXIDE 0.2; HHb 7.5; PO2, ARTERIAL BG 65.1 mmHg (83.0-108.0); VENT MODE, BG RA (ROOM AIR)
[2024-03-15] MEDS: FUROSEMIDE 40MG VIAL IV SCH (21:05)
[2024-03-16] VITALS (36 sets, daily range): BP systolic 81–138; BP diastolic 35–95; PULSE 62–122; RESP 17–33; O2SAT 97–100
[2024-03-16 04:20] LABS: BASOPHILS # (AUTO) 0.07 K/uL (0.00-0.20); BASOPHILS % (AUTO) 0.5 % (0.0-5.0); EOSINOPHILS # (AUTO) 0.18 K/uL (0.00-0.70); EOSINOPHILS % (AUTO) 1.2 % (0.0-8.0); HEMATOCRIT 30.6 % (42-54); IMMATURE GRANULOCYTE ABSOLUTE 0.82 K/uL (0-1); LYMPHOCYTES % (AUTO) 14.1 % (21.0-51.0); MEAN CORPUSCULAR HEMOGLOBIN 30.8 pg (27.0-33.0); MEAN CORPUSCULAR HGB CONC 33.3 g/dL (32.0-36.0); MEAN CORPUSCULAR VOLUME 92.4 fL (79-99); MONOCYTES # (AUTO) 1.5 K/uL (0.1-1.0); MONOCYTES % (AUTO) 10.3 % (3.0-13.0); NEUTROPHILS # (AUTO) 9.8 K/uL (1.8-7.7); NEUTROPHILS % (AUTO) 68.2 % (40.0-77.0); NUCLEATED RED BLOOD CELLS 0.8 % (0.0-0.19); PLATELET COUNT (AUTO) 142 K/uL (130-400); RED BLOOD CELL COUNT(AUTO) 3.31 MIL/uL (4.50-6.20); RED CELL DISTRIBUTION WIDTH 14.5 % (11.0-15.5); WHITE BLOOD COUNT (AUTO) 14.4 K/uL (4.8-10.8)
[2024-03-16 04:34] LABS: CREATININE 0.8 mg/dL (0.5-1.3); MAGNESIUM 1.4 mg/dL (1.80-2.40); PHOSPHORUS 1.8 mg/dL (2.5-4.9); POTASSIUM 3.3 mmol/L (3.5-5.1)
[2024-03-16] MEDS: FUROSEMIDE 20MG VIAL IV ONE (10:40)
[2024-03-16] MEDS ORDERED: AMIODARONE 900MG VIAL 900 MG in DEXTROSE 5%-WATER 200 ML IV PRN (21:30)
[2024-03-16] MEDS: AMIODARONE 900MG VIAL 150 MG in DEXTROSE 5%-WATER 100 ML IV PRN (22:27)
[2024-03-16] MEDS: AMIODARONE 360MG/200ML D5W(1MG/MIN) IV SCH (22:28)
[2024-03-17] VITALS (112 sets, daily range): BP systolic 73–150; BP diastolic 29–99; PULSE 68–108; RESP 17–39; O2SAT 98–100
[2024-03-17] MEDS: NOREPINEPHRIN 4MG/NS 250ML 250 ML IV ONE (01:32)
[2024-03-17 04:15] LABS: BASOPHILS # (AUTO) 0.07 K/uL (0.00-0.20); BASOPHILS % (AUTO) 0.6 % (0.0-5.0); EOSINOPHILS # (AUTO) 0.15 K/uL (0.00-0.70); EOSINOPHILS % (AUTO) 1.2 % (0.0-8.0); HEMATOCRIT 30.7 % (42-54); IMMATURE GRANULOCYTE ABSOLUTE 0.77 K/uL (0-1); LYMPHOCYTES # (AUTO) 1.6 K/uL (1.0-4.8); LYMPHOCYTES % (AUTO) 13.1 % (21.0-51.0); MEAN CORPUSCULAR HEMOGLOBIN 30.8 pg (27.0-33.0); MEAN CORPUSCULAR HGB CONC 33.2 g/dL (32.0-36.0); MEAN CORPUSCULAR VOLUME 92.7 fL (79-99); MONOCYTES # (AUTO) 1.2 K/uL (0.1-1.0); MONOCYTES % (AUTO) 9.9 % (3.0-13.0); NEUTROPHILS # (AUTO) 8.7 K/uL (1.8-7.7); NEUTROPHILS % (AUTO) 69.1 % (40.0-77.0); NUCLEATED RED BLOOD CELLS 1.1 % (0.0-0.19); PLATELET COUNT (AUTO) 207 K/uL (130-400); RED BLOOD CELL COUNT(AUTO) 3.31 MIL/uL (4.50-6.20); RED CELL DISTRIBUTION WIDTH 16.4 % (11.0-15.5); WHITE BLOOD COUNT (AUTO) 12.6 K/uL (4.8-10.8)
[2024-03-17 04:33] LABS: CREATININE 1.1 mg/dL (0.5-1.3); MAGNESIUM 1.8 mg/dL (1.80-2.40); PHOSPHORUS 1.8 mg/dL (2.5-4.9); POTASSIUM 3.2 mmol/L (3.5-5.1)
[2024-03-17] MEDS: WATER IV PRN (05:29)
[2024-03-17] MEDS: AMIODARONE IV PRN (05:29)
[2024-03-17] MEDS: DEXTROSE 5% IV PRN (05:29)
[2024-03-17] MEDS: KCL 20 MEQ ERTAB PO SCH (08:50)
[2024-03-17] MEDS: ENOXAPARIN SODIUM 30 MG/0.3 ML SQ SCH (08:51)
[2024-03-17] MEDS: FUROSEMIDE 20MG VIAL IV SCH (08:51)
[2024-03-17] MEDS: LACTULOSE 20 GM/30 ML UDCUP PO PRN (18:23)
[2024-03-17] MEDS ORDERED: FUROSEMIDE 20MG VIAL IV SCH (21:00)
[2024-03-18] VITALS (33 sets, daily range): BP systolic 92–140; BP diastolic 38–75; PULSE 61–91; RESP 16–34; O2SAT 98–100
[2024-03-18 05:11] LABS: HEMATOCRIT 33.5 % (42-54); MEAN CORPUSCULAR HEMOGLOBIN 31.2 pg (27.0-33.0); MEAN CORPUSCULAR HGB CONC 32.8 g/dL (32.0-36.0); MEAN CORPUSCULAR VOLUME 94.9 fL (79-99); NUCLEATED RED BLOOD CELLS 0.3 % (0.0-0.19); RED BLOOD CELL COUNT(AUTO) 3.53 MIL/uL (4.50-6.20); RED CELL DISTRIBUTION WIDTH 17.6 % (11.0-15.5); WHITE BLOOD COUNT (AUTO) 15.2 K/uL (4.8-10.8)
[2024-03-18 05:27] LABS: ALBUMIN 2.2 g/dL (3.5-5.0); BILIRUBIN,TOTAL 1.8 mg/dL (0.2-1.0); CREATININE 1.1 mg/dL (0.5-1.3); MAGNESIUM 1.9 mg/dL (1.80-2.40); POTASSIUM 4.8 mmol/L (3.5-5.1); TOTAL PROTEIN, SERUM 5.8 g/dL (6.0-8.3)
[2024-03-18] MEDS: SODIUM CHLORIDE 3% FOR INHALATION 4 ML/AMP VIAL.NEB IH ONE ×3 (11:33→23:09)
[2024-03-18 20:07] LABS: ABG BASE EXCESS 5.5 mmol/L (-2.0-3.0); ABG HCO3 29.1 mmol/L (21.0-28.0); ABG OXYGEN SATURATION 96.2 % (95.0-99.0); ABG PCO2 39 mmHg (35-48); ABG PH 7.492 (7.35-7.450); CARBON MONOXIDE 0.3; DEVICE COMMENT MAX RN ,RR; HHb 3.8; PO2, ARTERIAL BG 81.8 mmHg (83.0-108.0); VENT MODE, BG NC (ROOM AIR)
[2024-03-18] MEDS: FUROSEMIDE 20MG VIAL IV ONE (22:14)
[2024-03-19] VITALS (13 sets, daily range): BP systolic 100–116; BP diastolic 51–59; PULSE 77–94; RESP 18–23; O2SAT 98–100
[2024-03-19 07:10] LABS: HEMATOCRIT 30.2 % (42-54); MEAN CORPUSCULAR HEMOGLOBIN 30.9 pg (27.0-33.0); MEAN CORPUSCULAR HGB CONC 33.8 g/dL (32.0-36.0); MEAN CORPUSCULAR VOLUME 91.5 fL (79-99); NUCLEATED RED BLOOD CELLS 0.1 % (0.0-0.19); PLATELET COUNT (AUTO) 335 K/uL (130-400); RED CELL DISTRIBUTION WIDTH 18.2 % (11.0-15.5); WHITE BLOOD COUNT (AUTO) 18.6 K/uL (4.8-10.8)
[2024-03-19 07:25] LABS: POTASSIUM 3.6 mmol/L (3.5-5.1)
[2024-03-19] MEDS: FUROSEMIDE 20 MG TABLET PO SCH (08:25)
[2024-03-19 08:38] LABS: EOSINOPHILS % (MANUAL) 4 % (1-6); LYMPHOCYTES % (MANUAL) 2 % (22-44); MAN.DIFF COMMENT-IMPRESSION MANUAL DIFFERENTIAL; MONOCYTES % (MANUAL) 6 % (2-9); SEGMENTED NEUTROPHILS % 88 % (40-70); TOTAL CELLS COUNTED 100
[2024-03-19 08:39] LABS: PLATELET MORPHOLOGY COMMENT ADEQUATE
[2024-03-19] MEDS ORDERED: VANCOMYCIN PROTOCOL PER PHARMACY IV SCH (10:30)
[2024-03-19 10:45] LABS: INR 1.03 (0.85-1.15); PROTHROMBIN TIME 12.1 SEC (9.6-11.6)
[2024-03-19] MEDS: VANCOMYCIN 1.25 GM/250 ML BAG 250 ML IV SCH (11:53)
[2024-03-19] MEDS: FUROSEMIDE 20MG VIAL IV SCH (11:55)
[2024-03-19 12:10] LABS: MAGNESIUM 2.1 mg/dL (1.80-2.40); POTASSIUM 3.4 mmol/L (3.5-5.1)
[2024-03-19] MEDS: KCL 20 MEQ ERTAB PO ONE (12:22)
[2024-03-19] MEDS ORDERED: POTASSIUM CHLORIDE 20MEQ/100ML 100 ML IV PRN ×2 (12:30)
[2024-03-19] MEDS: KCL 20 MEQ ERTAB PO PRN (15:56)
[2024-03-19] MEDS: KCL 20 MEQ ERTAB PO SCH (20:46)
[2024-03-19] MEDS: INSULIN HUMULIN R 100 UNIT/ML 3ML SQ SCH (20:48)
[2024-03-20] VITALS (13 sets, daily range): BP systolic 98–128; BP diastolic 50–82; PULSE 70–100; RESP 18–32; O2SAT 97–99
[2024-03-20 07:22] LABS: HEMATOCRIT 32.6 % (42-54); MEAN CORPUSCULAR HGB CONC 33.1 g/dL (32.0-36.0); MEAN CORPUSCULAR VOLUME 93.7 fL (79-99); PLATELET COUNT (AUTO) 413 K/uL (130-400); RED BLOOD CELL COUNT(AUTO) 3.48 MIL/uL (4.50-6.20); RED CELL DISTRIBUTION WIDTH 18.6 % (11.0-15.5); WHITE BLOOD COUNT (AUTO) 21.4 K/uL (4.8-10.8)
[2024-03-20 07:41] LABS: CREATININE 0.9 mg/dL (0.5-1.3); POTASSIUM 3.3 mmol/L (3.5-5.1)
[2024-03-20 08:12] LABS: EOSINOPHILS % (MANUAL) 1 % (1-6); LYMPHOCYTES % (MANUAL) 11 % (22-44); MAN.DIFF COMMENT-IMPRESSION MANUAL DIFFERENTIAL; MONOCYTES % (MANUAL) 6 % (2-9); SEGMENTED NEUTROPHILS % 82 % (40-70); TOTAL CELLS COUNTED 100
[2024-03-20 08:13] LABS: PLATELET MORPHOLOGY COMMENT SLIGHTLY DECREASED
[2024-03-20] MEDS: METOPROLOL TARTRATE 50 MG TAB PO SCH (10:13)
[2024-03-20] MEDS: METRONIDAZOLE 500MG/100ML BAG 100 ML IVPB SCH (14:55)
[2024-03-21] VITALS (57 sets, daily range): BP systolic 93–135; BP diastolic 51–75; PULSE 79–125; RESP 15–40; O2SAT 95–100
[2024-03-21 03:57] LABS: BASOPHILS # (AUTO) 0.04 K/uL (0.00-0.20); BASOPHILS % (AUTO) 0.2 % (0.0-5.0); EOSINOPHILS # (AUTO) 0.31 K/uL (0.00-0.70); EOSINOPHILS % (AUTO) 1.8 % (0.0-8.0); HEMATOCRIT 29.8 % (42-54); IMMATURE GRANULOCYTE ABSOLUTE 0.27 K/uL (0-1); LYMPHOCYTES # (AUTO) 1.8 K/uL (1.0-4.8); LYMPHOCYTES % (AUTO) 10.3 % (21.0-51.0); MEAN CORPUSCULAR HEMOGLOBIN 31.4 pg (27.0-33.0); MEAN CORPUSCULAR HGB CONC 33.2 g/dL (32.0-36.0); MEAN CORPUSCULAR VOLUME 94.6 fL (79-99); MONOCYTES # (AUTO) 1.5 K/uL (0.1-1.0); MONOCYTES % (AUTO) 8.5 % (3.0-13.0); NEUTROPHILS # (AUTO) 13.4 K/uL (1.8-7.7); NEUTROPHILS % (AUTO) 77.6 % (40.0-77.0); PLATELET COUNT (AUTO) 394 K/uL (130-400); RED BLOOD CELL COUNT(AUTO) 3.15 MIL/uL (4.50-6.20); RED CELL DISTRIBUTION WIDTH 18.3 % (11.0-15.5); WHITE BLOOD COUNT (AUTO) 17.3 K/uL (4.8-10.8)
[2024-03-21 04:33] LABS: CREATININE 0.9 mg/dL (0.5-1.3); POTASSIUM 3.2 mmol/L (3.5-5.1)
[2024-03-21] MEDS: MAGNESIUM HYDROXIDE 30 ML/UDCUP PO PRN (05:01)
[2024-03-21] MEDS: POTASSIUM CHLORIDE 10% ELIXIR 20 MEQ/15 ML UDCUP PO PRN (05:02)
[2024-03-21] MEDS: FUROSEMIDE 20 MG TABLET PO SCH (08:14)
[2024-03-21 10:21] LABS: ABG BASE EXCESS 6.3 mmol/L (-2.0-3.0); ABG OXYGEN SATURATION 96.3 % (95.0-99.0); ABG PCO2 40 mmHg (35-48); ABG PH 7.494 (7.35-7.450); CARBON MONOXIDE 0.2; DEVICE COMMENT NP LISA; HHb 3.7; PO2, ARTERIAL BG 86.9 mmHg (83.0-108.0); VENT MODE, BG NC RR (ROOM AIR)
[2024-03-21] MEDS: FUROSEMIDE 20MG VIAL IV ONE (10:31)
[2024-03-21] MEDS: LINEZOLID 600 MG/ISO-OSM 300 ML IV SCH (11:00)
[2024-03-21] MEDS: FUROSEMIDE 100MG VIAL ONE (12:07)
[2024-03-21] MEDS: DOBUTAMINE 250MG/D5 250ML 250 ML IV ONE (12:08)
[2024-03-21] MEDS: FUROSEMIDE 40MG VIAL IV ONE (12:27)
[2024-03-21 12:41] LABS: AMMONIA < 10 umol/L (11-32)
[2024-03-21] MEDS: DEXMEDETOMIDINE 400MCG/NS100ML IV ONE (12:41)
[2024-03-21 12:53] LABS: THYROID STIMULATING HORMONE 4.26 uIU/mL (0.36-3.74)
[2024-03-21] MEDS: MEROPENEM 1 GM in 0.9%NACL 100ML 100 ML IV SCH (13:00)
[2024-03-21] MEDS: HEPARIN 25,000 UNITS/250ML D5W 250 ML IV SCH (13:20)
[2024-03-21 16:30] LABS: MAGNESIUM 2.1 mg/dL (1.80-2.40); POTASSIUM 3.6 mmol/L (3.5-5.1)
[2024-03-21] MEDS: DEXMEDETOMIDINE 400MCG/NS100ML IV SCH (17:34)
[2024-03-21 18:46] LABS: APPEARANCE,URINE CLEAR (CLEAR); BILIRUBIN,URINE NEGATIVE (NEGATIVE); COLOR,URINE LIGHT-YELLOW (YELLOW); GLUCOSE, URINE (UA) >=1000 mg/dL (NEGATIVE); KETONES,URINE NEGATIVE (NEGATIVE); LEUKOCYTE ESTERASE ,URINE NEGATIVE Leu/uL (NEGATIVE); NITRATE,URINE NEGATIVE (NEGATIVE); OCCULT BLOOD,URINE SMALL (NEGATIVE); PH,URINE 5.5 (5.0-8.0); PROTEIN,URINE 10 mg/dL (NEGATIVE); UROBILINOGEN,URINE 0.2 mg/dL (0.2-1.0)
[2024-03-21 18:56] LABS: ADD UA MICROSCOPIC YES
[2024-03-21 18:57] LABS: OTHER CASTS, URINE 2 /LPF (None Seen); RBC,URINE 0-1 /HPF (0-1); SQUAMOUS EPITHELIAL CELL,UR RARE /HPF (0-2)
[2024-03-21] MEDS: FUROSEMIDE 40 MG TABLET PO SCH (20:38)
[2024-03-21] MEDS ORDERED: 0.9%NACL 50ML IV SCH (22:00)
[2024-03-21] MEDS: CALCIUM GLUC 1GM/10ML VIAL IVPB SCH (23:04)
[2024-03-21 23:51] LABS: ABG BASE EXCESS 7.9 mmol/L (-2.0-3.0); ABG HCO3 32.2 mmol/L (21.0-28.0); ABG OXYGEN SATURATION 98.5 % (95.0-99.0); ABG PCO2 45 mmHg (35-48); ABG PH 7.478 (7.35-7.450); CARBON MONOXIDE 0.3; HHb 1.5; PO2, ARTERIAL BG 144.5 mmHg (83.0-108.0); VENT MODE, BG BIPAP12,5 (ROOM AIR)
[2024-03-22] VITALS (78 sets, daily range): BP systolic 91–132; BP diastolic 46–70; PULSE 77–104; RESP 3–40; O2SAT 95–100
[2024-03-22 01:03] LABS: POTASSIUM 3.6 mmol/L (3.5-5.1)
[2024-03-22] MEDS: DOBUTAMINE 250MG/D5 250ML 250 ML IV PRN (05:29)
[2024-03-22 07:07] LABS: BASOPHILS # (AUTO) 0.06 K/uL (0.00-0.20); BASOPHILS % (AUTO) 0.3 % (0.0-5.0); EOSINOPHILS # (AUTO) 0.29 K/uL (0.00-0.70); EOSINOPHILS % (AUTO) 1.2 % (0.0-8.0); HEMATOCRIT 28.7 % (42-54); IMMATURE GRANULOCYTE ABSOLUTE 0.28 K/uL (0-1); LYMPHOCYTES # (AUTO) 2.8 K/uL (1.0-4.8); LYMPHOCYTES % (AUTO) 11.7 % (21.0-51.0); MEAN CORPUSCULAR HEMOGLOBIN 31.6 pg (27.0-33.0); MEAN CORPUSCULAR HGB CONC 33.8 g/dL (32.0-36.0); MEAN CORPUSCULAR VOLUME 93.5 fL (79-99); MONOCYTES % (AUTO) 8.6 % (3.0-13.0); NEUTROPHILS # (AUTO) 18.2 K/uL (1.8-7.7); PLATELET COUNT (AUTO) 481 K/uL (130-400); RED BLOOD CELL COUNT(AUTO) 3.07 MIL/uL (4.50-6.20); RED CELL DISTRIBUTION WIDTH 18.6 % (11.0-15.5); WHITE BLOOD COUNT (AUTO) 23.7 K/uL (4.8-10.8)
[2024-03-22 07:13] LABS: POTASSIUM 3.6 mmol/L (3.5-5.1)
[2024-03-22] MEDS: ASPIRIN 325MG TAB PO SCH (09:09)
[2024-03-22] MEDS: FUROSEMIDE 100MG VIAL 100 MG in 0.9%NACL 100ML 100 ML IV SCH (10:52)
[2024-03-22 14:17] LABS: ABG BASE EXCESS 8.8 mmol/L (-2.0-3.0); ABG HCO3 33.4 mmol/L (21.0-28.0); ABG OXYGEN SATURATION 57.6 % (95.0-99.0); ABG PCO2 46 mmHg (35-48); ABG PH 7.475 (7.35-7.450); CARBON MONOXIDE 0.8; HHb 41.9; PO2, ARTERIAL BG < 45.0 mmHg (83.0-108.0); VENT MODE, BG BIPAP (ROOM AIR)
[2024-03-22 14:30] LABS: CREATININE 1.1 mg/dL (0.5-1.3); POTASSIUM 3.2 mmol/L (3.5-5.1)
[2024-03-22 16:01] LABS: ABG BASE EXCESS 9.7 mmol/L (-2.0-3.0); ABG OXYGEN SATURATION 97.6 % (95.0-99.0); ABG PCO2 40 mmHg (35-48); ABG PH 7.539 (7.35-7.450); CARBON MONOXIDE 0.3; HHb 2.4; PO2, ARTERIAL BG 92.9 mmHg (83.0-108.0); VENT MODE, BG BIPAP (ROOM AIR)
[2024-03-22] MEDS: 0.9%NACL 50ML 50 ML IV SCH (21:44)
[2024-03-22] MEDS: ACETAZOLAMIDE SODIUM 500 MG VIAL IV SCH (21:44)
[2024-03-22 21:52] LABS: CREATININE 1.2 mg/dL (0.5-1.3); POTASSIUM 4.3 mmol/L (3.5-5.1)
[2024-03-23] VITALS (114 sets, daily range): BP systolic 92–122; BP diastolic 44–68; PULSE 82–142; RESP 13–39; O2SAT 93–100
[2024-03-23 03:49] LABS: BASOPHILS # (AUTO) 0.04 K/uL (0.00-0.20); BASOPHILS % (AUTO) 0.2 % (0.0-5.0); EOSINOPHILS # (AUTO) 0.28 K/uL (0.00-0.70); EOSINOPHILS % (AUTO) 1.4 % (0.0-8.0); HEMATOCRIT 31.3 % (42-54); IMMATURE GRANULOCYTE ABSOLUTE 0.16 K/uL (0-1); LYMPHOCYTES # (AUTO) 2.3 K/uL (1.0-4.8); LYMPHOCYTES % (AUTO) 11.3 % (21.0-51.0); MEAN CORPUSCULAR HEMOGLOBIN 30.8 pg (27.0-33.0); MEAN CORPUSCULAR HGB CONC 31.6 g/dL (32.0-36.0); MEAN CORPUSCULAR VOLUME 97.5 fL (79-99); MONOCYTES # (AUTO) 2.1 K/uL (0.1-1.0); MONOCYTES % (AUTO) 9.9 % (3.0-13.0); NEUTROPHILS # (AUTO) 15.8 K/uL (1.8-7.7); NEUTROPHILS % (AUTO) 76.4 % (40.0-77.0); PLATELET COUNT (AUTO) 468 K/uL (130-400); RED BLOOD CELL COUNT(AUTO) 3.21 MIL/uL (4.50-6.20); RED CELL DISTRIBUTION WIDTH 18.5 % (11.0-15.5); WHITE BLOOD COUNT (AUTO) 20.7 K/uL (4.8-10.8)
[2024-03-23 04:02] LABS: CREATININE 1.1 mg/dL (0.5-1.3); POTASSIUM 3.2 mmol/L (3.5-5.1)
[2024-03-23 04:53] LABS: MAGNESIUM 1.8 mg/dL (1.80-2.40); PHOSPHORUS 2.8 mg/dL (2.5-4.9)
[2024-03-23 05:12] LABS: ABG BASE EXCESS 7.9 mmol/L (-2.0-3.0); ABG PCO2 43 mmHg (35-48); ABG PH 7.489 (7.35-7.450); CARBON MONOXIDE 0.5; PO2, ARTERIAL BG 99.8 mmHg (83.0-108.0)
[2024-03-23 12:05] LABS: MAGNESIUM 2.3 mg/dL (1.80-2.40)
[2024-03-24] VITALS (117 sets, daily range): BP systolic 73–123; BP diastolic 33–84; PULSE 85–138; RESP 13–39; O2SAT 94–100
[2024-03-24 04:19] LABS: HEMATOCRIT 29.4 % (42-54); MEAN CORPUSCULAR HEMOGLOBIN 30.4 pg (27.0-33.0); MEAN CORPUSCULAR VOLUME 95.1 fL (79-99); RED BLOOD CELL COUNT(AUTO) 3.09 MIL/uL (4.50-6.20); RED CELL DISTRIBUTION WIDTH 18.1 % (11.0-15.5); WHITE BLOOD COUNT (AUTO) 16.8 K/uL (4.8-10.8)
[2024-03-24 04:35] LABS: ALBUMIN 2.1 g/dL (3.5-5.0); BILIRUBIN,TOTAL 1.3 mg/dL (0.2-1.0); CREATININE 1.1 mg/dL (0.5-1.3); MAGNESIUM 1.9 mg/dL (1.80-2.40); POTASSIUM 3.3 mmol/L (3.5-5.1); TOTAL PROTEIN, SERUM 6.6 g/dL (6.0-8.3)
[2024-03-24] MEDS: POTASSIUM CHLORIDE 10% ELIXIR 20 MEQ/15 ML UDCUP PO ONE (06:57)
[2024-03-24] MEDS: LIDOCAINE HCL 2% VISCOUS 15 ML UDCUP ONE (09:33)
[2024-03-24] MEDS: FUROSEMIDE 20MG VIAL IV SCH (12:49)
[2024-03-24 15:00] LABS: ABG BASE EXCESS -3.7 mmol/L (-2.0-3.0); ABG HCO3 20.3 mmol/L (21.0-28.0); ABG OXYGEN SATURATION 99.5 % (95.0-99.0); ABG PCO2 33 mmHg (35-48); ABG PH 7.404 (7.35-7.450); CARBON MONOXIDE 0.3; HHb 0.5; PO2, ARTERIAL BG 288.3 mmHg (83.0-108.0); VENT MODE, BG NRM (ROOM AIR)
[2024-03-24] MEDS: DEXMEDETOMIDINE 400MCG/NS100ML IV SCH (15:15)
[2024-03-24] MEDS: SODIUM BICARB 50MEQ 50ML VIAL IV ONE (16:48)
[2024-03-24 19:10] LABS: MAGNESIUM 2.8 mg/dL (1.80-2.40)
[2024-03-24] MEDS: POTASSIUM CHLORIDE 10% ELIXIR 20 MEQ/15 ML UDCUP PO SCH (20:28)
[2024-03-24] MEDS: OCTREOTIDE ACETATE 100 MCG/ML AMP SQ SCH (20:29)
[2024-03-25] VITALS (90 sets, daily range): BP systolic 82–115; BP diastolic 41–65; PULSE 72–95; RESP 11–40; TEMP 96.2–97.1; O2SAT 95–100
[2024-03-25 04:48] LABS: BASOPHILS # (AUTO) 0.02 K/uL (0.00-0.20); BASOPHILS % (AUTO) 0.1 % (0.0-5.0); EOSINOPHILS # (AUTO) 0.01 K/uL (0.00-0.70); EOSINOPHILS % (AUTO) 0.1 % (0.0-8.0); HEMATOCRIT 31.2 % (42-54); LYMPHOCYTES # (AUTO) 1.7 K/uL (1.0-4.8); LYMPHOCYTES % (AUTO) 10.9 % (21.0-51.0); MEAN CORPUSCULAR HEMOGLOBIN 30.7 pg (27.0-33.0); MEAN CORPUSCULAR HGB CONC 31.4 g/dL (32.0-36.0); MEAN CORPUSCULAR VOLUME 97.8 fL (79-99); MONOCYTES # (AUTO) 1.5 K/uL (0.1-1.0); MONOCYTES % (AUTO) 9.5 % (3.0-13.0); NEUTROPHILS # (AUTO) 12.1 K/uL (1.8-7.7); NEUTROPHILS % (AUTO) 78.8 % (40.0-77.0); PLATELET COUNT (AUTO) 374 K/uL (130-400); RED BLOOD CELL COUNT(AUTO) 3.19 MIL/uL (4.50-6.20); RED CELL DISTRIBUTION WIDTH 18.2 % (11.0-15.5); WHITE BLOOD COUNT (AUTO) 15.4 K/uL (4.8-10.8)
[2024-03-25 05:03] LABS: ALBUMIN 2.1 g/dL (3.5-5.0); BILIRUBIN,TOTAL 0.9 mg/dL (0.2-1.0); CREATININE 1.2 mg/dL (0.5-1.3); MAGNESIUM 2.4 mg/dL (1.80-2.40); PHOSPHORUS 3.8 mg/dL (2.5-4.9); POTASSIUM 3.9 mmol/L (3.5-5.1); TOTAL PROTEIN, SERUM 6.9 g/dL (6.0-8.3)
[2024-03-25 07:52] LABS: ABG BASE EXCESS 5.8 mmol/L (-2.0-3.0); ABG HCO3 31.4 mmol/L (21.0-28.0); ABG OXYGEN SATURATION 97.9 % (95.0-99.0); ABG PCO2 49 mmHg (35-48); ABG PH 7.423 (7.35-7.450); CPAP, BG 10 cm H2O; DEVICE COMMENT LEO RN; PO2, ARTERIAL BG 106.5 mmHg (83.0-108.0)
[2024-03-25] MEDS: FUROSEMIDE 40MG VIAL IV SCH (12:24)
[2024-03-25 19:43] LABS: ABG BASE EXCESS 5.3 mmol/L (-2.0-3.0); ABG HCO3 30.3 mmol/L (21.0-28.0); ABG PCO2 47 mmHg (35-48); ABG PH 7.429 (7.35-7.450); CARBON MONOXIDE 0.3; PO2, ARTERIAL BG 110.5 mmHg (83.0-108.0)
[2024-03-25 21:07] LABS: INR 0.99 (0.85-1.15); PROTHROMBIN TIME 11.7 SEC (9.6-11.6)
[2024-03-26] VITALS (91 sets, daily range): BP systolic 92–145; BP diastolic 40–108; PULSE 71–95; RESP 12–35; O2SAT 97–100
[2024-03-26 04:08] LABS: BASOPHILS # (AUTO) 0.03 K/uL (0.00-0.20); BASOPHILS % (AUTO) 0.3 % (0.0-5.0); EOSINOPHILS % (AUTO) 0.9 % (0.0-8.0); HEMATOCRIT 29.2 % (42-54); IMMATURE GRANULOCYTE ABSOLUTE 0.12 K/uL (0-1); LYMPHOCYTES # (AUTO) 1.3 K/uL (1.0-4.8); LYMPHOCYTES % (AUTO) 11.5 % (21.0-51.0); MEAN CORPUSCULAR HEMOGLOBIN 30.7 pg (27.0-33.0); MEAN CORPUSCULAR HGB CONC 31.5 g/dL (32.0-36.0); MEAN CORPUSCULAR VOLUME 97.3 fL (79-99); MONOCYTES # (AUTO) 1.1 K/uL (0.1-1.0); MONOCYTES % (AUTO) 9.5 % (3.0-13.0); NEUTROPHILS # (AUTO) 8.8 K/uL (1.8-7.7); NEUTROPHILS % (AUTO) 76.7 % (40.0-77.0); PLATELET COUNT (AUTO) 267 K/uL (130-400); RED CELL DISTRIBUTION WIDTH 17.9 % (11.0-15.5); WHITE BLOOD COUNT (AUTO) 11.4 K/uL (4.8-10.8)
[2024-03-26 04:09] LABS: INR 1.01 (0.85-1.15); PROTHROMBIN TIME 11.9 SEC (9.6-11.6)
[2024-03-26 04:25] LABS: ALBUMIN 1.9 g/dL (3.5-5.0); BILIRUBIN,TOTAL 0.8 mg/dL (0.2-1.0); MAGNESIUM 2.2 mg/dL (1.80-2.40); POTASSIUM 4.4 mmol/L (3.5-5.1); TOTAL PROTEIN, SERUM 6.4 g/dL (6.0-8.3)
[2024-03-26 05:42] LABS: PARTIAL THROMBOPLASTIN TIME 25.6 SEC (26.3-35.5)
[2024-03-26] MEDS: NOREPINEPHRIN 4MG/NS 250ML 250 ML IV PRN (05:58)
[2024-03-26] MEDS: 0.9%NACL 10ML VIAL IV SCH (20:37)
[2024-03-26] MEDS: FUROSEMIDE 100MG VIAL 100 MG in 0.9%NACL 100ML 100 ML IV SCH (20:53)
[2024-03-27] VITALS (52 sets, daily range): BP systolic 96–154; BP diastolic 42–72; PULSE 76–102; RESP 13–44; O2SAT 100
[2024-03-27] MEDS: DEXMEDETOMIDINE 400MCG/NS100ML IV ONE (00:24)
[2024-03-27] MEDS ORDERED: DEXMEDETOMIDINE 400MCG/NS100ML IV SCH (00:30)
[2024-03-27 05:33] LABS: BASOPHILS # (AUTO) 0.03 K/uL (0.00-0.20); BASOPHILS % (AUTO) 0.3 % (0.0-5.0); EOSINOPHILS # (AUTO) 0.08 K/uL (0.00-0.70); EOSINOPHILS % (AUTO) 0.7 % (0.0-8.0); HEMATOCRIT 30.9 % (42-54); LYMPHOCYTES # (AUTO) 1.5 K/uL (1.0-4.8); LYMPHOCYTES % (AUTO) 14.2 % (21.0-51.0); MEAN CORPUSCULAR HEMOGLOBIN 30.6 pg (27.0-33.0); MEAN CORPUSCULAR HGB CONC 32.7 g/dL (32.0-36.0); MEAN CORPUSCULAR VOLUME 93.6 fL (79-99); MONOCYTES # (AUTO) 1.1 K/uL (0.1-1.0); MONOCYTES % (AUTO) 9.9 % (3.0-13.0); NEUTROPHILS # (AUTO) 7.9 K/uL (1.8-7.7); PLATELET COUNT (AUTO) 298 K/uL (130-400); RED CELL DISTRIBUTION WIDTH 17.3 % (11.0-15.5); WHITE BLOOD COUNT (AUTO) 10.7 K/uL (4.8-10.8)
[2024-03-27 05:47] LABS: BILIRUBIN,TOTAL 0.8 mg/dL (0.2-1.0); MAGNESIUM 1.8 mg/dL (1.80-2.40); POTASSIUM 3.5 mmol/L (3.5-5.1); TOTAL PROTEIN, SERUM 6.7 g/dL (6.0-8.3)
[2024-03-27] MEDS: FUROSEMIDE 40MG VIAL IV SCH (09:10)
[2024-03-27] MEDS: ALBUTEROL 0.083% 2.5 MG/3 ML INH IH PRN (23:26)
[2024-03-28] VITALS (48 sets, daily range): BP systolic 92–187; BP diastolic 42–70; PULSE 76–89; RESP 17–31; O2SAT 95–100
[2024-03-28 04:26] LABS: HEMATOCRIT 33.8 % (42-54); MEAN CORPUSCULAR HEMOGLOBIN 31.4 pg (27.0-33.0); MEAN CORPUSCULAR HGB CONC 32.2 g/dL (32.0-36.0); MEAN CORPUSCULAR VOLUME 97.4 fL (79-99); RED BLOOD CELL COUNT(AUTO) 3.47 MIL/uL (4.50-6.20); RED CELL DISTRIBUTION WIDTH 17.9 % (11.0-15.5); WHITE BLOOD COUNT (AUTO) 9.8 K/uL (4.8-10.8)
[2024-03-28 04:42] LABS: CREATININE 0.9 mg/dL (0.5-1.3); MAGNESIUM 1.9 mg/dL (1.80-2.40); POTASSIUM 3.3 mmol/L (3.5-5.1)
[2024-03-28] MEDS: SPIRONOLACTONE 25 MG TAB PO SCH (09:25)
[2024-03-28] MEDS: ENOXAPARIN SODIUM 30 MG/0.3 ML SQ SCH (09:26)
[2024-03-29] VITALS (47 sets, daily range): BP systolic 101–137; BP diastolic 41–85; PULSE 80–97; RESP 14–27; O2SAT 97–100
[2024-03-29 04:03] LABS: BASOPHILS # (AUTO) 0.02 K/uL (0.00-0.20); BASOPHILS % (AUTO) 0.2 % (0.0-5.0); EOSINOPHILS # (AUTO) 0.02 K/uL (0.00-0.70); EOSINOPHILS % (AUTO) 0.2 % (0.0-8.0); HEMATOCRIT 35.4 % (42-54); IMMATURE GRANULOCYTE ABSOLUTE 0.05 K/uL (0-1); LYMPHOCYTES # (AUTO) 0.9 K/uL (1.0-4.8); LYMPHOCYTES % (AUTO) 9.6 % (21.0-51.0); MEAN CORPUSCULAR HEMOGLOBIN 30.9 pg (27.0-33.0); MEAN CORPUSCULAR HGB CONC 32.5 g/dL (32.0-36.0); MEAN CORPUSCULAR VOLUME 95.2 fL (79-99); MONOCYTES # (AUTO) 0.7 K/uL (0.1-1.0); MONOCYTES % (AUTO) 7.3 % (3.0-13.0); NEUTROPHILS # (AUTO) 7.3 K/uL (1.8-7.7); NEUTROPHILS % (AUTO) 82.1 % (40.0-77.0); PLATELET COUNT (AUTO) 209 K/uL (130-400); RED BLOOD CELL COUNT(AUTO) 3.72 MIL/uL (4.50-6.20); RED CELL DISTRIBUTION WIDTH 17.5 % (11.0-15.5); WHITE BLOOD COUNT (AUTO) 8.9 K/uL (4.8-10.8)
[2024-03-29 04:24] LABS: ALBUMIN 2.2 g/dL (3.5-5.0); BILIRUBIN,TOTAL 0.8 mg/dL (0.2-1.0); CREATININE 0.9 mg/dL (0.5-1.3); POTASSIUM 3.6 mmol/L (3.5-5.1); TOTAL PROTEIN, SERUM 7.1 g/dL (6.0-8.3)
[2024-03-29] MEDS ORDERED: PROMETHAZINE HCL 25 MG/ML 1ML AMPULE IM PRN (20:00)
[2024-03-30] VITALS (45 sets, daily range): BP systolic 90–128; BP diastolic 36–78; PULSE 82–112; RESP 12–34; O2SAT 99–100
[2024-03-30 03:40] LABS: BASOPHILS # (AUTO) 0.03 K/uL (0.00-0.20); BASOPHILS % (AUTO) 0.4 % (0.0-5.0); EOSINOPHILS # (AUTO) 0.02 K/uL (0.00-0.70); EOSINOPHILS % (AUTO) 0.3 % (0.0-8.0); HEMATOCRIT 33.2 % (42-54); IMMATURE GRANULOCYTE ABSOLUTE 0.02 K/uL (0-1); LYMPHOCYTES # (AUTO) 1.4 K/uL (1.0-4.8); LYMPHOCYTES % (AUTO) 20.2 % (21.0-51.0); MEAN CORPUSCULAR HEMOGLOBIN 30.9 pg (27.0-33.0); MEAN CORPUSCULAR HGB CONC 32.2 g/dL (32.0-36.0); MONOCYTES # (AUTO) 0.7 K/uL (0.1-1.0); MONOCYTES % (AUTO) 9.8 % (3.0-13.0); NEUTROPHILS # (AUTO) 4.7 K/uL (1.8-7.7); PLATELET COUNT (AUTO) 158 K/uL (130-400); RED BLOOD CELL COUNT(AUTO) 3.46 MIL/uL (4.50-6.20); RED CELL DISTRIBUTION WIDTH 17.3 % (11.0-15.5); WHITE BLOOD COUNT (AUTO) 6.7 K/uL (4.8-10.8)
[2024-03-30 03:49] LABS: MAGNESIUM 1.8 mg/dL (1.80-2.40); POTASSIUM 3.9 mmol/L (3.5-5.1)
[2024-03-30] MEDS: METOPROLOL TARTRATE 25 MG TAB PO ONE (10:19)
[2024-03-30] MEDS: METOPROLOL TARTRATE 25 MG TAB PO SCH (20:52)
[2024-03-31] VITALS (38 sets, daily range): BP systolic 93–120; BP diastolic 40–59; PULSE 81–92; RESP 14–36; O2SAT 99–100
[2024-03-31 05:36] LABS: BASOPHILS # (AUTO) 0.02 K/uL (0.00-0.20); BASOPHILS % (AUTO) 0.3 % (0.0-5.0); EOSINOPHILS # (AUTO) 0.02 K/uL (0.00-0.70); EOSINOPHILS % (AUTO) 0.3 % (0.0-8.0); HEMATOCRIT 30.4 % (42-54); IMMATURE GRANULOCYTE ABSOLUTE 0.03 K/uL (0-1); LYMPHOCYTES # (AUTO) 1.6 K/uL (1.0-4.8); LYMPHOCYTES % (AUTO) 23.4 % (21.0-51.0); MEAN CORPUSCULAR HEMOGLOBIN 31.1 pg (27.0-33.0); MEAN CORPUSCULAR HGB CONC 33.2 g/dL (32.0-36.0); MEAN CORPUSCULAR VOLUME 93.5 fL (79-99); MONOCYTES # (AUTO) 0.7 K/uL (0.1-1.0); MONOCYTES % (AUTO) 10.3 % (3.0-13.0); NEUTROPHILS # (AUTO) 4.4 K/uL (1.8-7.7); NEUTROPHILS % (AUTO) 65.3 % (40.0-77.0); NUCLEATED RED BLOOD CELLS 0.3 % (0.0-0.19); PLATELET COUNT (AUTO) 131 K/uL (130-400); RED BLOOD CELL COUNT(AUTO) 3.25 MIL/uL (4.50-6.20); RED CELL DISTRIBUTION WIDTH 17.2 % (11.0-15.5); WHITE BLOOD COUNT (AUTO) 6.7 K/uL (4.8-10.8)
[2024-03-31 05:50] LABS: ALBUMIN 2.2 g/dL (3.5-5.0); MAGNESIUM 1.8 mg/dL (1.80-2.40); POTASSIUM 4.5 mmol/L (3.5-5.1); TOTAL PROTEIN, SERUM 6.9 g/dL (6.0-8.3)
[2024-03-31] MEDS: INSULIN GLARGINE 100 UNITS/ML 10 ML VIAL SQ SCH (09:23)
[2024-04-01] VITALS (50 sets, daily range): BP systolic 93–158; BP diastolic 40–74; PULSE 77–94; RESP 15–40; O2SAT 97–100
[2024-04-01 08:59] LABS: BASOPHILS # (AUTO) 0.03 K/uL (0.00-0.20); BASOPHILS % (AUTO) 0.4 % (0.0-5.0); HEMATOCRIT 30.2 % (42-54); IMMATURE GRANULOCYTE ABSOLUTE 0.06 K/uL (0-1); LYMPHOCYTES # (AUTO) 0.8 K/uL (1.0-4.8); LYMPHOCYTES % (AUTO) 11.1 % (21.0-51.0); MEAN CORPUSCULAR HEMOGLOBIN 30.6 pg (27.0-33.0); MEAN CORPUSCULAR HGB CONC 32.1 g/dL (32.0-36.0); MEAN CORPUSCULAR VOLUME 95.3 fL (79-99); MONOCYTES # (AUTO) 0.5 K/uL (0.1-1.0); MONOCYTES % (AUTO) 7.6 % (3.0-13.0); NEUTROPHILS # (AUTO) 5.7 K/uL (1.8-7.7); NEUTROPHILS % (AUTO) 80.1 % (40.0-77.0); NUCLEATED RED BLOOD CELLS 0.3 % (0.0-0.19); PLATELET COUNT (AUTO) 89 K/uL (130-400); RED BLOOD CELL COUNT(AUTO) 3.17 MIL/uL (4.50-6.20); RED CELL DISTRIBUTION WIDTH 17.2 % (11.0-15.5); WHITE BLOOD COUNT (AUTO) 7.1 K/uL (4.8-10.8)
[2024-04-01 10:13] LABS: CREATININE 0.9 mg/dL (0.5-1.3); POTASSIUM 4.1 mmol/L (3.5-5.1)
[2024-04-02] VITALS (44 sets, daily range): BP systolic 93–129; BP diastolic 44–66; PULSE 80–105; RESP 17–43; O2SAT 98–100
[2024-04-02 10:09] LABS: BASOPHILS # (AUTO) 0.01 K/uL (0.00-0.20); BASOPHILS % (AUTO) 0.1 % (0.0-5.0); EOSINOPHILS # (AUTO) 0.04 K/uL (0.00-0.70); EOSINOPHILS % (AUTO) 0.4 % (0.0-8.0); IMMATURE GRANULOCYTE ABSOLUTE 0.06 K/uL (0-1); LYMPHOCYTES # (AUTO) 0.9 K/uL (1.0-4.8); LYMPHOCYTES % (AUTO) 9.4 % (21.0-51.0); MEAN CORPUSCULAR HEMOGLOBIN 31.3 pg (27.0-33.0); MEAN CORPUSCULAR HGB CONC 32.3 g/dL (32.0-36.0); MEAN CORPUSCULAR VOLUME 96.8 fL (79-99); MONOCYTES # (AUTO) 1.2 K/uL (0.1-1.0); MONOCYTES % (AUTO) 12.4 % (3.0-13.0); NEUTROPHILS # (AUTO) 7.2 K/uL (1.8-7.7); NEUTROPHILS % (AUTO) 77.1 % (40.0-77.0); NUCLEATED RED BLOOD CELLS 0.4 % (0.0-0.19); PLATELET COUNT (AUTO) 75 K/uL (130-400); RED CELL DISTRIBUTION WIDTH 16.8 % (11.0-15.5); WHITE BLOOD COUNT (AUTO) 9.4 K/uL (4.8-10.8)
[2024-04-02 10:23] LABS: CREATININE 0.9 mg/dL (0.5-1.3); POTASSIUM 3.4 mmol/L (3.5-5.1)
[2024-04-02] MEDS: LACTULOSE 20 GM/30 ML UDCUP PO SCH (20:16)
[2024-04-02] MEDS: POLYETHYLENE GLYCOL 3350 17 GM POWD.PACK PO SCH (20:16)
[2024-04-02] MEDS: DOCUSATE SODIUM 100 MG CAP PO SCH (20:17)
[2024-04-02] MEDS: FUROSEMIDE 40MG VIAL IV SCH (20:17)
[2024-04-03] VITALS (26 sets, daily range): BP systolic 91–120; BP diastolic 44–65; PULSE 77–92; RESP 14–31; O2SAT 98–100
[2024-04-03 03:42] LABS: BASOPHILS # (AUTO) 0.01 K/uL (0.00-0.20); BASOPHILS % (AUTO) 0.1 % (0.0-5.0); EOSINOPHILS # (AUTO) 0.02 K/uL (0.00-0.70); EOSINOPHILS % (AUTO) 0.3 % (0.0-8.0); HEMATOCRIT 29.3 % (42-54); IMMATURE GRANULOCYTE ABSOLUTE 0.07 K/uL (0-1); LYMPHOCYTES # (AUTO) 1.6 K/uL (1.0-4.8); MEAN CORPUSCULAR HEMOGLOBIN 30.9 pg (27.0-33.0); MEAN CORPUSCULAR HGB CONC 33.4 g/dL (32.0-36.0); MEAN CORPUSCULAR VOLUME 92.4 fL (79-99); MONOCYTES # (AUTO) 1.1 K/uL (0.1-1.0); NEUTROPHILS # (AUTO) 4.8 K/uL (1.8-7.7); NEUTROPHILS % (AUTO) 62.7 % (40.0-77.0); NUCLEATED RED BLOOD CELLS 0.4 % (0.0-0.19); PLATELET COUNT (AUTO) 77 K/uL (130-400); RED BLOOD CELL COUNT(AUTO) 3.17 MIL/uL (4.50-6.20); WHITE BLOOD COUNT (AUTO) 7.6 K/uL (4.8-10.8)
[2024-04-03 04:05] LABS: CREATININE 0.7 mg/dL (0.5-1.3); MAGNESIUM 1.8 mg/dL (1.80-2.40); POTASSIUM 4.5 mmol/L (3.5-5.1)
== END 2024-04-03 19:00 | DRG 231 ==
LOC: DAH 09:07 → DAHIP 09:08 → 2AH 17:02 → 2CV 03-09 13:29 → 2BH 03-14 23:59 → 2AH 03-18 13:21 → 2CH 03-21 10:30
PROVIDERS: ADMIT Internal Medicine Critical Care Medicine; ATTEND Internal Medicine Critical Care Medicine
PROC: 4A023N7 Measurement of Cardiac Sampling and Pressure, Left Heart, Percutaneous Approach (ICD-10-PCS; 2024-03-07)
PROC: B2111ZZ Fluoroscopy of Multiple Coronary Arteries using Low Osmolar Contrast (ICD-10-PCS; 2024-03-07)
PROC: B2151ZZ Fluoroscopy of Left Heart using Low Osmolar Contrast (ICD-10-PCS; 2024-03-07)
PROC: 0PS004Z Reposition Sternum with Internal Fixation Device, Open Approach (ICD-10-PCS; 2024-03-09)
PROC: B24BZZ4 Ultrasonography of Heart with Aorta, Transesophageal (ICD-10-PCS; 2024-03-09)
PROC: 02100Z9 Bypass Coronary Artery, One Artery from Left Internal Mammary, Open Approach (ICD-10-PCS; principal; 2024-03-09 14:31)
PROC: 027034Z Dilation of Coronary Artery, One Artery with Drug-eluting Intraluminal Device, Percutaneous Approach (ICD-10-PCS; 2024-03-09 14:31)
PROC: 021109W Bypass Coronary Artery, Two Arteries from Aorta with Autologous Venous Tissue, Open Approach (ICD-10-PCS; 2024-03-09 14:31)
PROC: 06BQ0ZZ Excision of Left Saphenous Vein, Open Approach (ICD-10-PCS; 2024-03-09 14:31)
PROC: 30233N1 Transfusion of Nonautologous Red Blood Cells into Peripheral Vein, Percutaneous Approach (ICD-10-PCS; 2024-03-10)
PROC: 5A02210 Assistance with Cardiac Output using Balloon Pump, Continuous (ICD-10-PCS; 2024-03-12)
PROC: 5A09457 Assistance with Respiratory Ventilation, 24-96 Consecutive Hours, Continuous Positive Airway Pressure (ICD-10-PCS; 2024-03-21)
PROC: 5A09457 Assistance with Respiratory Ventilation, 24-96 Consecutive Hours, Continuous Positive Airway Pressure (ICD-10-PCS; 2024-03-23)
PROC: 5A09457 Assistance with Respiratory Ventilation, 24-96 Consecutive Hours, Continuous Positive Airway Pressure (ICD-10-PCS; 2024-03-24)
PROC: 5A09457 Assistance with Respiratory Ventilation, 24-96 Consecutive Hours, Continuous Positive Airway Pressure (ICD-10-PCS; 2024-03-25)
PROC: 02HV33Z Insertion of Infusion Device into Superior Vena Cava, Percutaneous Approach (ICD-10-PCS; 2024-03-26)
PROC: B548ZZA Ultrasonography of Superior Vena Cava, Guidance (ICD-10-PCS; 2024-03-26)
PROC: 5A0945A Assistance with Respiratory Ventilation, 24-96 Consecutive Hours, High Flow/Velocity Cannula (ICD-10-PCS; 2024-03-26)
PROC: 5A0935A Assistance with Respiratory Ventilation, Less than 24 Consecutive Hours, High Flow/Velocity Cannula (ICD-10-PCS; 2024-03-29)
DX: I25.10 Atherosclerotic heart disease of native coronary artery without angina pectoris (principal); A41.9 Sepsis, unspecified organism; I50.23 Acute on chronic systolic (congestive) heart failure; J95.821 Acute postprocedural respiratory failure; I21.19 ST elevation (STEMI) myocardial infarction involving other coronary artery of inferior wall; I46.2 Cardiac arrest due to underlying cardiac condition; I49.01 Ventricular fibrillation; J18.9 Pneumonia, unspecified organism; J95.1 Acute pulmonary insufficiency following thoracic surgery; K72.00 Acute and subacute hepatic failure without coma; R57.0 Cardiogenic shock; R65.21 Severe sepsis with septic shock; D62 Acute posthemorrhagic anemia; E46 Unspecified protein-calorie malnutrition; E87.3 Alkalosis; G93.1 Anoxic brain damage, not elsewhere classified; J93.9 Pneumothorax, unspecified; J98.11 Atelectasis; N17.9 Acute kidney failure, unspecified; N30.00 Acute cystitis without hematuria; J90 Pleural effusion, not elsewhere classified; I11.0 Hypertensive heart disease with heart failure; E11.65 Type 2 diabetes mellitus with hyperglycemia; Z20.822 Contact with and (suspected) exposure to COVID-19; B95.1 Streptococcus, group B, as the cause of diseases classified elsewhere; D69.59 Other secondary thrombocytopenia; E03.9 Hypothyroidism, unspecified; E78.00 Pure hypercholesterolemia, unspecified; F41.9 Anxiety disorder, unspecified; I25.2 Old myocardial infarction; I25.5 Ischemic cardiomyopathy; I27.20 Pulmonary hypertension, unspecified; I48.0 Paroxysmal atrial fibrillation; R13.12 Dysphagia, oropharyngeal phase; R62.7 Adult failure to thrive; Z66 Do not resuscitate; Z79.02 Long term (current) use of antithrombotics/antiplatelets; Z79.82 Long term (current) use of aspirin; Z79.899 Other long term (current) drug therapy; Z68.26 Body mass index [BMI] 26.0-26.9, adult
CPT/HCPCS: 36415; 36430; 36600; 43752; 71045; 74176; 74230; 76000; 76700; 80048; 80053; 80061; 80076; 80202; 81001; 82140; 82306; 82330; 82435; 82803; 82947; 82948; 83036; 83605; 83735; 83880; 84100; 84132; 84145; 84295; 84439; 84443; 84484; 85014; 85018; 85025; 85027; 85347; 85384; 85610; 85730; 86022; 86850; 86900; 86901; 86923; 87040; 87088; 87426; 87641; 92507; 92610; 92611; 92950; 93005; 93306; 93308; 93318; 93356; 93455; 93458; 93880; 94002; 94003; 94010; 94150; 94640; 94660; 96360; 96361; 99156; 99157; A4344; A4606; A7048; C1751; C1769; C1887; C1894; C9606; G0378; J0171; J0282; J0461; J0612; J0690; J0692; J1120; J1250; J1644; J1650; J1815; J1940; J2001; J2020; J2185; J2250; J2270; J2354; J2405; J2440; J2543; J2704; J2720; J3010; J3475; J3480; J3490; J7030; J7040; J7050; J7060; J7070; P9016; P9034; P9045; Q9967; 3370; A4215; A4216; A4221; A4222; A4223; A4315; A4351; A4452; A4600; A4649; A4663; A4930; A5120; A6204; A6219; C1713; C1725; C1776; C1874; G0168; Q9965